=== PATIENT | male | born 1975 | race Caucasian/White ===

== ENCOUNTER 2018-05-25 19:14 | Inpatient (IN) ==
[2018-05-25] MEDS ORDERED: Sod Chloride 0.9% Inj 1,000 ML IV.SIG ONE (19:38)
[2018-05-25] MEDS ORDERED: Pantoprazole Inj 40 MG Vial IV.PUSH ONE (19:38)
[2018-05-25 19:58] LABS: Hemoglobin 9.9 gm/dL (13.0-17.0); Mean Corpuscular HGB Conc 35.5 % (32.0-36.0); Mean Corpuscular Hemoglobin 37.3 pg (27.0-34.0); Mean Corpuscular Volume 105.1 fL (80.0-100.0); Mean Platelet Volume 10.7 fL (7.0-11.0); Platelet Count 97 th/mm3 (150-450); Red Blood Count 2.67 mil/mm3 (4.50-5.90); White Blood Count 11.7 th/mm3 (4.0-11.0)
--- NOTE | 2018-05-25 20:04 | XR ---
EXAM DATE: 05/25/2018 7:53 PM EDT AGE/SEX: 43 years / Male INDICATIONS: Chest pain. CLINICAL DATA: This is the patient's initial encounter. Patient reports that signs and symptoms have been present for 1 day and indicates a pain score of 5/10. MEDICAL/SURGICAL HISTORY: None. None. COMPARISON: No prior exams available for comparison. FINDINGS: Trace bibasilar atelectasis. No pleural effusion. No pneumothorax. Heart size within normal limits. CONCLUSION: Minimal bibasilar atelectasis. Electronically signed by: Homar Correia MD 05/25/2018 8:03 PM EDT
[2018-05-25 20:10] LABS: Chloride 99 meq/L (98-107); Potassium 3.6 meq/L (3.5-5.1); Sodium 137 meq/L (136-145)
[2018-05-25 20:15] LABS: Albumin 2.1 g/dL (3.4-5.0); Anion Gap 15 meq/L (5-15); Blood Urea Nitrogen 27 mg/dL (7-18); Carbon Dioxide 22.7 meq/L (21.0-32.0); Glucose,Random 158 mg/dL (74-106)
[2018-05-25 20:16] LABS: Activated Partial Thrombo Time 32.4 sec (24.3-30.1); INR 1.6 Ratio; Prothrombin Time 16.3 sec (9.8-11.6)
[2018-05-25 20:18] LABS: Alanine Aminotransferase 62 U/L (12-78); Aspartate Aminotransferase 285 U/L (15-37); Glomerular Filtration Rate Greater Than 89 mL/min (>89)
[2018-05-25 20:19] LABS: Total Protein 8.1 g/dL (6.4-8.2)
[2018-05-25 20:21] LABS: Alkaline Phosphatase 210 U/L (45-117)
[2018-05-25 20:36] LABS: Lipase 233 U/L (73-393)
[2018-05-25 20:39] LABS: Alcohol 147 mg/dL (0-5)
[2018-05-25] MEDS ORDERED: Octreotide Inj 500 MCG/ML Vial IV.CONT SCH (21:00)
[2018-05-25 21:22] LABS: Lymphocytes 22 % (9-44); Metamyelocytes 1 % (0-1); Monocytes 9 % (0-8); Platelet Morphology Normal (Normal); RBC Morphology Normal (Normal)
--- NOTE | 2018-05-25 21:58 | ED ---
HPI General Chief complaint: GI Bleed Stated complaint: Blood in stool Time Seen by Provider: 05/25/18 19:35 Source: patient and family Mode of arrival: ambulatory Limitations: no limitations Related Data Home Medications Medication Instructions Recorded Confirmed ibuprofen 800 mg PO ONCE 05/25/18 05/25/18 Allergies Allergy/AdvReac Type Severity Reaction Status Date / Time No Known Allergies Allergy Verified 05/25/18 19:50 Review of Systems ROS: all other systems reviewed are negative (Patient presents with 2 problems # 1 chest pain that is has been intermittent for the last week with episodes of substernal pressure that lasted approximately 1 hour and occur 1-2 times per day. Additionally patient has history of black stools for 3-4 days and also had nausea and vomiting with coffee-ground emesis and is heme positive prior to arrival. Patient has not been treated for liver disease but has history of sclera icterus and distended belly 4 months. History of significant chronic alcohol ingestion. Patient has been taking increased ibuprofen for the last week and a half to deal with his chest pain.) [facility] Medical History Medical History Alcohol abuse (Acute) Surgical History Surgical History No history of previous surgery (Acute) Social History Social History Substance History: No History of Abuse Second Hand Smoke Exposure: Yes Smoking Status: Heavy tobacco smoker Tobacco Type: Cigarettes How Often Do You Have a Drink Containing Alcohol: 4 or more times a week Recent Travel in [facility] within the Last 8 Weeks: No Recent Out of Country Travel within the Last 8 Weeks: No Exam Narrative Exam Narrative: GENERAL: Alert and oriented SKIN: Focused skin assessment warm/dry. HEAD: Atraumatic. Normocephalic. Coffee-ground material on. EYES: Pupils equal and round. Significant scleral icterus. No injection or drainage. ENT: No nasal bleeding or discharge. Mucous membranes pink and moist. NECK: Trachea midline. No JVD. CARDIOVASCULAR: Regular rate and rhythm. No murmur appreciated. RESPIRATORY: No accessory muscle use. Clear to auscultation. Breath sounds equal bilaterally. GASTROINTESTINAL: Distended abdomen with dullness to percussion consistent with ascites . abdomen soft, non-tender, nondistended. Hepatic and splenic margins not palpable. Rectal: Black Hemoccult positive stool MUSCULOSKELETAL: No obvious deformities. No clubbing. No cyanosis. No edema. NEUROLOGICAL: Awake and alert. No obvious cranial nerve deficits. Motor grossly within normal limits. Normal speech. PSYCHIATRIC: Appropriate mood and affect; insight and judgment normal. Course Reevaluation(s) Reevaluation #1: Unchanged patient stable at present time Time: 22:01 Initial Documented Vital Signs Temperature 98.2 F 05/25/18 19:17 Pulse Rate 129 H 05/25/18 19:17 Respiratory Rate 20 05/25/18 19:17 Blood Pressure 131/74 05/25/18 19:17 Pulse Oximetry 96 05/25/18 19:17 Last Documented Vital Signs Temperature 98.2 F 05/25/18 19:17 Pulse Rate 122 H 05/25/18 22:15 Respiratory Rate 16 05/25/18 22:15 Blood Pressure 106/61 05/25/18 22:15 Pulse Oximetry 95 05/25/18 22:15 Medical Decision Making MDM Narrative Medical decision making narrative: Patient had black stools for about 3-4 days. The hematemesis just occurred prior to arrival. His presentation is very consistent with slow GI bleed over the last 3-4 days with no evidence of significant hemorrhage at this time. It was decided not to put a nasogastric tube to treat him rather with Protonix and octreotide. Patient has history of intermittent chest pain for the last week, however, has not had any chest pain while in the emergency department. Differential Diagnosis Differential Diagnosis: GI bleed; slow or active bleeding. Esophageal varices; peptic ulcer; Lab Data Result diagrams: 05/25/18 19:30 05/25/18 19:30 Lab Results 05/25/18 05/25/18 05/25/18 Range/Units 19:30 19:30 19:30 CBC w Diff Slide review pending WBC 11.7 H (4.0-11.0) th/mm3 RBC 2.67 L (4.50-5.90) mil/mm3 Hgb 9.9 L (13.0-17.0) gm/dL Hct 28.0 L (39.0-51.0) % MCV 105.1 H (80.0-100.0) fL MCH 37.3 H (27.0-34.0) pg MCHC 35.5 (32.0-36.0) % RDW 17.0 (11.6-17.2) % Plt Count 97 L (150-450) th/mm3 MPV 10.7 (7.0-11.0) fL WBC Differential Manual diff final Seg Neuts % (Manual) 63 (16-70) % Band Neuts % (Manual) 2 (0-6) % Lymphocytes % (Manual) 22 (9-44) % Monocytes % (Manual) 9 H (0-8) % Basophils % (Manual) 3 H (0-2) % Metamyelocytes % (Man) 1 (0-1) % Abs Neuts (Manual) 7.7 (1.8-7.7) th/mm3 Differential Comment . Platelet Estimate Low L (Normal) Platelet Morphology Normal (Normal) RBC Morphology Normal (Normal) PT 16.3 H (9.8-11.6) sec INR 1.6 Ratio APTT 32.4 H (24.3-30.1) sec Sodium (136-145) meq/L Potassium (3.5-5.1) meq/L Chloride (98-107) meq/L Carbon Dioxide (21.0-32.0) meq/L Anion Gap (5-15) meq/L BUN (7-18) mg/dL Creatinine (0.60-1.30) mg/dL Estimated GFR (>89) mL/min Random Glucose (74-106) mg/dL Calcium (8.5-10.1) mg/dL Total Bilirubin (0.2-1.0) mg/dL AST (15-37) U/L ALT (12-78) U/L Alkaline Phosphatase (45-117) U/L Troponin I (0.02-0.05) ng/mL Total Protein (6.4-8.2) g/dL Albumin (3.4-5.0) g/dL Lipase 233 (73-393) U/L Serum Alcohol 147 H (0-5) mg/dL Blood Type Blood Type Recheck Antibody Screen 05/25/18 05/25/18 05/25/18 Range/Units 19:30 19:30 19:30 CBC w Diff WBC (4.0-11.0) th/mm3 RBC (4.50-5.90) mil/mm3 Hgb (13.0-17.0) gm/dL Hct (39.0-51.0) % MCV (80.0-100.0) fL MCH (27.0-34.0) pg MCHC (32.0-36.0) % RDW (11.6-17.2) % Plt Count (150-450) th/mm3 MPV (7.0-11.0) fL WBC Differential Seg Neuts % (Manual) (16-70) % Band Neuts % (Manual) (0-6) % Lymphocytes % (Manual) (9-44) % Monocytes % (Manual) (0-8) % Basophils % (Manual) (0-2) % Metamyelocytes % (Man) (0-1) % Abs Neuts (Manual) (1.8-7.7) th/mm3 Differential Comment Platelet Estimate (Normal) Platelet Morphology (Normal) RBC Morphology (Normal) PT (9.8-11.6) sec INR Ratio APTT (24.3-30.1) sec Sodium 137 (136-145) meq/L Potassium 3.6 (3.5-5.1) meq/L Chloride 99 (98-107) meq/L Carbon Dioxide 22.7 (21.0-32.0) meq/L Anion Gap 15 (5-15) meq/L BUN 27 H (7-18) mg/dL Creatinine 0.66 (0.60-1.30) mg/dL Estimated GFR Greater than 89 (>89) mL/min Random Glucose 158 H (74-106) mg/dL Calcium 8.0 L (8.5-10.1) mg/dL Total Bilirubin 11.3 H (0.2-1.0) mg/dL AST 285 H (15-37) U/L ALT 62 (12-78) U/L Alkaline Phosphatase 210 H (45-117) U/L Troponin I Less than 0.02 L (0.02-0.05) ng/mL Total Protein 8.1 (6.4-8.2) g/dL Albumin 2.1 L (3.4-5.0) g/dL Lipase (73-393) U/L Serum Alcohol (0-5) mg/dL Blood Type A Positive Blood Type Recheck Antibody Screen Negative Imaging Data Radiologist's impression: Chest X-Ray 05/25/18 19:41 CONCLUSION: Minimal bibasilar atelectasis. Discharge Plan Discharge Disposition Patient Disposition: 30 Still Patient Physicians Team ED Provider: Artur Saenz Primary Care Provider: Primary Care Karina Lugo Other Providers: Mary Rocha Rxs /Orders / Referrals /Forms Prescriptions: No Action ibuprofen 200 mg Tablet 800 mg PO ONCE RF: 0 Discharge Interventions Interventions: Vital Signs Last Done: 05/25/18 20:10 Status ED Status: With Doctor
[2018-05-25] MEDS ORDERED: LORazepam 1 MG Tablet PO PRN (22:19)
[2018-05-25] MEDS ORDERED: Haloperidol Inj 5 MG/ML Ampul IV.PUSH PRN (22:19)
[2018-05-25] MEDS: Sod Chloride 0.9% Inj 1,000 ML IV.CONT SCH (22:54)
[2018-05-25] MEDS: Octreotide Inj 500 MCG in Sodium Chlor 0.9% Inj 500 ML IV.SIG SCH (23:01)
[2018-05-26 00:54] LABS: Hematocrit 25.2 % (39.0-51.0); Hemoglobin 8.8 gm/dL (13.0-17.0); Mean Corpuscular HGB Conc 34.8 % (32.0-36.0); Mean Corpuscular Volume 106.1 fL (80.0-100.0); Mean Platelet Volume 9.7 fL (7.0-11.0); Platelet Count 91 th/mm3 (150-450); Red Blood Count 2.37 mil/mm3 (4.50-5.90); Red Cell Distribution Width 17.1 % (11.6-17.2); White Blood Count 10.8 th/mm3 (4.0-11.0)
[2018-05-26 01:01] LABS: Chloride 102 meq/L (98-107); Potassium 3.4 meq/L (3.5-5.1); Sodium 139 meq/L (136-145)
[2018-05-26 01:04] LABS: Anion Gap 13 meq/L (5-15); Blood Urea Nitrogen 27 mg/dL (7-18); Calcium 7.8 mg/dL (8.5-10.1); Carbon Dioxide 24.5 meq/L (21.0-32.0); Glucose,Random 123 mg/dL (74-106)
[2018-05-26 01:08] LABS: Glomerular Filtration Rate Greater Than 89 mL/min (>89)
[2018-05-26 01:53] LABS: Lymphocytes 10 % (9-44); Monocytes 6 % (0-8); Target Cells 1+; Tear Drop Cells 1+
[2018-05-26 01:54] LABS: Platelet Morphology Normal (Normal)
[2018-05-26 05:31] LABS: Hematocrit 25.1 % (39.0-51.0); Hemoglobin 8.8 gm/dL (13.0-17.0)
[2018-05-26] MEDS: Sod Chloride 0.9% Inj 1,000 ML IV.CONT SCH ×4 (06:07→23:08)
[2018-05-26] MEDS ORDERED: Potassium Chlor 20 mEq Premix 20 MEQ/100 ML PIGGYBACK IV.SIG ONE (07:18)
[2018-05-26] MEDS ORDERED: Diatrizoate Meglum/Diatrizoate Sod Liq 9 ML UDC PO ONE (08:00)
--- NOTE | 2018-05-26 08:25 | P.HPIM ---
History of Present Illness Primary Care Physician: No Primary Care Physician Chief Complaint: Intestinal bleeding History of Present Illness: Is a 43-year-old gentleman with a history of alcohol dependency who presents with severe liver failure and evidence of GI bleeding patient says he has had abdominal pain and chest pressure for which she started taking ibuprofen. Patient complains of mild abdominal pain at this point. He has been picking at his bottom. He has rectal exam which showed some hemorrhoids with Hemoccult positive stool in the emergency room. Here the patient has been comfortable but picking at his bottom. Patient's been admitted to the hospital with a hemoglobin of 9.9 and a pulse rate in the 120s - Diagnosis (1) EtOH dependence (2) Liver failure (3) GI bleed (4) Metabolic encephalopathy (5) Anemia Inpatient Certification: I certify that the inpatient services were ordered in accordance with Medicare regulations governing the order. This includes certification that hospital inpatient services are reasonable and necessary and in the case of services not specified as inpatient-only under 42 CFR 419.22(n), that they are appropriately provided as inpatient services in accordance to with the 2-midnight benchmark under 43 CFR 412.3(e) [facility] - History History Provided By: Patient - Medical History Medical History: Medical History (Last Reviewed 05/26/18 @ 08:18 by Orquidea Astorga MD) Alcohol abuse - Surgical History Surgical History: Surgical History (Last Reviewed 05/26/18 @ 08:18 by Orquidea Astorga MD) No history of previous surgery - Family History Family History: Family History (Last Updated 05/26/18 @ 08:18 by Orquidea Astorga MD) Other EtOH dependence - Tobacco History Second Hand Smoke Exposure: Yes Tobacco Use In Past 30 Days: Yes Smoking Status: Smoker, status unknown Tobacco Type: Cigarettes - Alcohol History How Often Do You Have a Drink Containing Alcohol: 4 or more times a week (Fifth of vodka a day) - Substance Use History Substance History: No History of Abuse - Travel History Recent Travel in the [place] Within the Last 8 Weeks: No Recent Travel Out of the Country Within the Last 8 Weeks: No - Immunization History Tetanus Immunization: Never Vaccinated Hx Influenza Vaccine This Season: No Medications and Allergies Active Medications: Active Medications Flumazenil (Romazecon Inj) 0.2 mg IV.PUSH Q1M PRN PRN Reason: OVERSEDATION Haloperidol Lactate (Haldol Inj) 1 mg IV.PUSH Q15M PRN PRN Reason: for severe agitation Sodium Chloride (Ns Inj) 1,000 mls @ 125 mls/hr IV.CONT .Q8H ANGI Last Admin: 05/26/18 06:07 Dose: 125 mls/hr Multivitamins 10 ml/ Folic (Acid 1 mg/ Sodium Chloride) 510.2 mls @ 125 mls/hr IV.SIG DAILY ANGI Stop: 05/31/18 08:59 Octreotide Acetate 500 mcg/ (Sodium Chloride) 501 mls @ 50 mls/hr IV.SIG Q10H ANGI Last Admin: 05/25/18 23:01 Dose: 50 mls/hr Potassium Chloride (Kcl 20 Meq Premix Inj) 20 meq in 100 mls @ 50 mls/hr IV.SIG ONCE ONE Stop: 05/26/18 09:17 Lorazepam (Ativan) 2 mg PO Q2H PRN PRN Reason: for CIWA 11-14 Lorazepam (Ativan Inj) 2 mg IV.PUSH Q2H PRN PRN Reason: for CIWA 11-14 Lorazepam (Ativan Inj) 2 mg IV.PUSH Q1H PRN PRN Reason: for CIWA 15-20 Lorazepam (Ativan Inj) 2 mg IV.PUSH Q15M PRN PRN Reason: for CIWA > 20 Lorazepam (Ativan Inj) 1 mg IV.PUSH Q4H PRN PRN Reason: for CIWA 8-10 Lorazepam (Ativan) 1 mg PO Q4H PRN PRN Reason: for CIWA 8-10 Last Admin: 05/26/18 04:08 Dose: 1 mg Ondansetron HCl (Zofran Inj) 4 mg IV.PUSH Q6H PRN PRN Reason: NAUSEA Pantoprazole Sodium (Protonix Inj) 40 mg IV.PUSH DAILY ANGI Sodium Chloride (Ns Flush) 2 ml IV.FLUSH PRN PRN PRN Reason: FLUSH AFTER USING IV ACCESS Last Admin: 05/25/18 20:07 Dose: 2 ml Sodium Chloride (Ns Flush) 2 ml IV.FLUSH BID ANGI Sodium Chloride (Ns Flush) 2 ml IV.FLUSH PRN PRN PRN Reason: FLUSH AFTER USING IV ACCESS Thiamine HCl (Vitamin B1) 100 mg PO DAILY ANGI Allergies Allergy/AdvReac Type Severity Reaction Status Date / Time No Known Allergies Allergy Verified 05/25/18 19:50 Home Medications Medication Instructions Recorded Confirmed Type ibuprofen 800 mg PO ONCE 05/25/18 05/25/18 History Exam Vital signs: Vital Signs 05/25/18 19:17 05/25/18 19:40 05/25/18 20:10 Temperature 98.2 F Pulse Rate 129 H 113 H 118 H Respiratory Rate 20 16 18 Blood Pressure 131/74 125/71 114/65 Pulse Oximetry 96 99 95 05/25/18 21:15 05/25/18 22:15 05/26/18 00:40 Temperature Pulse Rate 114 H 122 H 104 H Respiratory Rate 18 16 16 Blood Pressure 129/80 106/61 134/74 Pulse Oximetry 95 95 96 05/26/18 01:10 05/26/18 01:25 05/26/18 01:28 Temperature Pulse Rate 108 H Respiratory Rate Blood Pressure 135/76 Pulse Oximetry 96 96 05/26/18 01:34 05/26/18 01:55 05/26/18 02:00 Temperature Pulse Rate 114 H 108 H Respiratory Rate 20 Blood Pressure Pulse Oximetry 95 94 L 05/26/18 03:00 05/26/18 03:18 05/26/18 04:00 Temperature 98.5 F Pulse Rate 112 H 112 H 122 H Respiratory Rate 30 H 25 H 55 H Blood Pressure 121/77 121/79 Pulse Oximetry 94 L 94 L 94 L Intake & Output 05/25/18 05/26/18 05/26/18 18:59 06:59 18:59 Intake Total 2059 / 2060 Output Total 800 / 800 Balance 1260 / 1260 Weight 98.9 kg Intake: IV 1999 / 1999 NS Inj 1,000 ML @ 125 mls/hr IV 1000 / 1000 .CONT .Q8H ANGI Rx#:[id number] NS Inj 1,000 ML @ Wide Open IV. 1000 / 1000 SIG BOLUS ONE Rx#:[id number] Oral 60 / 60 Output: Urine 550 / 550 Emesis 250 / 250 Other: Date of Last Bowel Movement 05/26/18 # Bowel Movements 1 Weight On Admission 98.9 kg Narrative: GENERAL: Frail gentleman who is jaundiced and disheveled and appears older than stated age SKIN: Warm and dry. Diffuse telangiectasias HEAD: Normocephalic. EYES: Scleral icterus is present NECK: Supple, trachea midline. No JVD or lymphadenopathy. CARDIOVASCULAR: Regular rate and rhythm without murmurs, gallops, or rubs. RESPIRATORY: Breath sounds equal bilaterally. No accessory muscle use. GASTROINTESTINAL: Abdomen soft, nontender but distended MUSCULOSKELETAL: No cyanosis, and there is +3 lower extremity edema BACK: Nontender without obvious deformity. No CVA tenderness. NEUROLOGICAL: Awake and alert. Cranial nerves II through XII intact. Motor and sensory grossly within normal limits. Five out of 5 muscle strength in all muscle groups. Normal speech. Results - Labs CBC & Chem 7: 05/26/18 05:20 05/26/18 00:35 Labs: Short CBC 05/25/18 05/26/18 05/26/18 Range/Units 19:30 00:35 05:20 WBC 11.7 H 10.8 (4.0-11.0) th/mm3 Hgb 9.9 L 8.8 L 8.8 L (13.0-17.0) gm/dL Hct 28.0 L 25.2 L 25.1 L (39.0-51.0) % Plt Count 97 L 91 L (150-450) th/mm3 BMP 05/25/18 05/26/18 19:30 00:35 Sodium 137 139 Potassium 3.6 3.4 L Chloride 99 102 Carbon Dioxide 22.7 24.5 BUN 27 H 27 H Creatinine 0.66 0.63 Calcium 8.0 L 7.8 L Cardiac Enzymes 05/25/18 Range/Units 19:30 Troponin I Less than 0.02 L (0.02-0.05) ng/mL Liver Function 05/25/18 Range/Units 19:30 Total Bilirubin 11.3 H (0.2-1.0) mg/dL AST 285 H (15-37) U/L ALT 62 (12-78) U/L Alkaline Phosphatase 210 H (45-117) U/L Albumin 2.1 L (3.4-5.0) g/dL - Imaging Impressions Chest X-Ray 05/25/18 19:41 CONCLUSION: Minimal bibasilar atelectasis. Caprini VTE Risk Assessment Caprini VTE Risk Assessment: Moderate/High Risk (score >= 2) VTE Pharmacological Exception Reason: End Stage Liver Disease Caprini Risk Assessment Model: Point Value = 1 Point Value = 2 Point Value = 3 Point Value = 5 Age 41-60 Minor surgery BMI > 25 kg/m2 Swollen legs Varicose veins or History of unexplained or recurrent spontaneous Oral contraceptives or hormone replacement Sepsis (< 1 month) Serious lung disease, including pneumonia (< 1 month) Abnormal pulmonary function Acute myocardial infarction Congestive heart failure (< 1 month) History of inflammatory bowel disease Medical patient at bed rest Age 61-74 Arthroscopic surgery Major open surgery (> 45 min) Laparoscopic surgery (> 45 min) Malignancy Confined to bed (> 72 hours) Immobilizing plaster cast Central venous access Age >= 75 History of VTE Family history of VTE Factor V Leiden Prothrombin [id number] Lupus anticoagulant Anticardiolipin antibodies Elevated serum homocysteine Heparin-induced thrombocytopenia Other congenital or acquired thrombophilia Stroke (< 1 month) Elective arthroplasty Hip, pelvis, or leg fracture Acute spinal cord injury (< 1 month) Prophylaxis Regimen: Total Risk Factor Score Risk Level Prophylaxis Regimen 0-1 Low Early ambulation 2 Moderate Order ONE of the following: *Sequential Compression Device (SCD) *Heparin 5000 units SQ BID 3-4 Higher Order ONE of the following medications: *Heparin 5000 units SQ TID *Enoxaparin/Lovenox 40 mg SQ daily (WT < 150 kg, CrCl > 30 mL/min) *Enoxaparin/Lovenox 30 mg SQ daily (WT < 150 kg, CrCl > 10-29 mL/min) *Enoxaparin/Lovenox 30 mg SQ BID (WT < 150 kg, CrCl > 30 mL/min) AND/OR *Sequential Compression Device (SCD) 5 or more Highest Order ONE of the following medications: *Heparin 5000 units SQ TID (Preferred with Epidurals) *Enoxaparin/Lovenox 40 mg SQ daily (WT < 150 kg, CrCl > 30 mL/min) *Enoxaparin/Lovenox 30 mg SQ daily (WT < 150 kg, CrCl > 10-29 mL/min) *Enoxaparin/Lovenox 30 mg SQ BID (WT < 150 kg, CrCl > 30 mL/min) AND *Sequential Compression Device (SCD) Assessment and Plan - Assessment (1) EtOH dependence Code(s): F10.20 - Alcohol dependence, uncomplicated Status: Acute Plan: [facility] protocol Patient education (2) Liver failure Code(s): K72.90 - Hepatic failure, unspecified without coma Status: Acute Plan: Rule out alternative causes of an alcohol which is the most likely etiology Follow-up iron levels and viral hepatitis studies CT abdomen pelvis pending Add Lasix and diuresed patient Patient may benefit from Aldactone and her lactulose depending on the rest of his studies We will add a beta-maria l (3) GI bleed Code(s): K92.2 - Gastrointestinal hemorrhage, unspecified Status: Acute Plan: Patient on Protonix and octreotide Follow-up hemoglobin Follow-up CT abdomen pelvis GI consult for possible endoscopy Avoid NSAIDs (4) Metabolic encephalopathy Code(s): G93.41 - Metabolic encephalopathy Status: Acute Plan: Follow-up ammonia level Likely due to liver disease Continue medical management with CIWA protocol (5) Anemia Code(s): D64.9 - Anemia, unspecified Status: Acute Plan: Workup in progress, transfuse as needed Likely due to acute GI blood losses Type and screen completed H&P: Quality - VTE Deep Vein Thrombosis/Pulmonary Embolism Present on Admission: No
--- NOTE | 2018-05-26 08:28 | ECG ---
Date Performed: 05/25/2018 Time Performed: 19:37:16 PTAGE: 43 years EKG: SINUS TACHYCARDIA NONSPECIFIC ST & T-WAVE ABNORMALITY ABNORMAL RHYTHM ECG NO PREVIOUS TRACING DOCTOR: Kiko Bloom Interpretating Date/Time 05/26/2018 08:25:57
[2018-05-26 09:14] LABS: Chloride 104 meq/L (98-107); Potassium 3.3 meq/L (3.5-5.1); Sodium 140 meq/L (136-145)
[2018-05-26 09:17] LABS: Calcium 7.5 mg/dL (8.5-10.1)
[2018-05-26 09:18] LABS: Anion Gap 11 meq/L (5-15); Blood Urea Nitrogen 19 mg/dL (7-18); Glucose,Random 127 mg/dL (74-106)
[2018-05-26 09:21] LABS: Alanine Aminotransferase 52 U/L (12-78); Aspartate Aminotransferase 238 U/L (15-37); Glomerular Filtration Rate Greater Than 89 mL/min (>89)
[2018-05-26 09:22] LABS: Total Protein 7.3 g/dL (6.4-8.2)
[2018-05-26 09:24] LABS: Alkaline Phosphatase 172 U/L (45-117)
[2018-05-26] MEDS: Pantoprazole Inj 40 MG Vial IV.PUSH SCH (09:37)
[2018-05-26] MEDS: Octreotide Inj 500 MCG in Sodium Chlor 0.9% Inj 500 ML IV.SIG SCH ×2 (09:47→20:26)
[2018-05-26] MEDS: Nadolol 20 MG Tablet PO SCH (10:11)
--- NOTE | 2018-05-26 11:36 | CT ---
EXAM DATE: 05/26/2018 11:29 AM EDT AGE/SEX: 43 years / Male INDICATIONS: Elevated liver enzymes and black stool with nausea and vomiting. CLINICAL DATA: This is the patient's initial encounter. Patient reports that signs and symptoms have been present for 3 days and indicates a pain score of 0/10. MEDICAL/SURGICAL HISTORY: None. None. RADIATION DOSE: 22.43 CTDI (mGy) COMPARISON: No prior exams available for comparison. TECHNIQUE: Multiple contiguous axial images were obtained through the abdomen. Images were obtained using multiple row detector helical technique. Using automated exposure control and adjustment of the mA and/or kV according to patient size, radiation dose was kept as low as reasonably achievable to o btain optimal diagnostic quality images. DICOM format image data is available electronically for rev iew and comparison. FINDINGS: Lower Lungs: Right basilar density likely atelectasis. Small right pleural effusion. Liver: The liver is extremely heterogeneous without space-occupying lesion. There is no dilation of t he biliary tree. Moderate amount of abdominal ascites. There is a left upper quadrant. Spleen: Homogeneous density with enlargement. Pancreas: Unremarkable without mass or calcification. Kidneys: Normal in size and shape. No evidence of mass or hydronephrosis. Adrenal Glands: Unremarkable. Aorta: The aorta and proximal iliac vessels are grossly unremarkable without aneurysmal dilation. Bowel/Mesentery: Scattered diverticulosis Abdominal Wall: Intact. Retroperitoneum: No evidence of adenopathy in the retrocrural, para-aortic, or deep pelvic regions. Bladder: Contours are smooth. Reproductive Organs: No abnormal masses or calcifications seen. Inguinal: The inguinal region is unremarkable without evidence of adenopathy. Bony Structures: Unremarkable. CONCLUSION: 1. Heterogeneous liver likely hepatitis/cirrhosis. 2. Splenomegaly. 3. Moderate abdominal ascites and there is disease left upper quadrant. 4. Small right pleural effusion and right basilar density. Electronically signed by: Harris Ewing MD 05/26/2018 11:35 AM EDT
--- NOTE | 2018-05-26 12:00 | MB ---
cc: Mary Rocha MD DATE: 05/26/2018 REFERRING PHYSICIAN: Orquidea Astorga MD REASON FOR CONSULTATION: GI bleed. HISTORY OF PRESENT ILLNESS: Mr. Mccullough is a 43-year-old gentleman, heavy alcohol user, came to the emergency room with atypical chest pain and some hematemesis. He is a somewhat poor historian. He is unable to tell me how much blood exactly he vomited. He showed me his hand and he said it was a handful of dark blood. He also had some dark stool per rectum. Never had an endoscopy or a colonoscopy. There is no weight loss. There is some increasing abdominal girth. He does not recall any previous episodes of acute hepatitis or hospitalizations for the above reasons. PAST MEDICAL HISTORY: Alcohol dependence, alcoholic hepatitis, GI bleed, encephalopathy, anemia. PAST SURGICAL HISTORY: None. SOCIAL HISTORY: Does drink alcohol daily. FAMILY HISTORY: No family history of colon cancer or any other GI pathology. CURRENT MEDICATIONS: 1. Flumazenil 2. Haloperidol. 3. Multivitamins. 4. Octreotide. 5. Potassium chloride. 6. Ativan p.r.n. 7. Zofran p.r.n. 8. Protonix IV. 9. Thiamine. ALLERGIES: NO KNOWN ALLERGIES. MEDICATIONS AT HOME: None. REVIEW OF SYSTEMS: GENERAL: He denies any fever, chills, weight loss or weight gain. ENT: No alteration in baseline hearing or visual activity. PULMONARY: Denies any chest pain, shortness of breath. GASTROINTESTINAL: As above. GENITOURINARY: Denies dysuria or hematuria. HEMATOLOGICAL: Denies any history of anemia or bleeding disorder. SKIN: No alteration of baseline skin lesion. NEUROLOGIC: No history of TIA or CVA kind of symptoms. PHYSICAL EXAMINATION: GENERAL: He is sitting in bed, no acute distress. He looks older than his age. VITAL SIGNS: Temperature is 98.5, heart rate is 122, respirations 25, saturation 94, blood pressure 121/79. HEENT: PERRLA, jaundiced. NECK: Without JVD. No lymphadenopathy. CHEST: Clear to auscultation and palpation. CARDIOVASCULAR: S1, S2. No murmur. ABDOMEN: Soft, nontender, or distended, mild ascites. CENTRAL NERVOUS SYSTEM: Awake, alert, oriented x3. No flapping tremor. EXTREMITIES: No pedal edema. RECTAL: External hemorrhoids on rectal examination. LABORATORY DATA: His hemoglobin on admission of 9.91, white count 11.7, platelets 97. Repeat hemoglobin 8.8. PT/INR 16.3 and 1.6. Chemistry: Total bilirubin is 11.3. Now was done, AST 238, alkaline phosphatase 172, albumin 2, ammonia 56. His PT/INR as above. His alcohol serum 147. Hepatitis profile pending. A CT abdomen and pelvis was ordered and pending. ASSESSMENT: 1. Mr. Mccullough is a 43-year-old gentleman admitted with a gastrointestinal bleed, most likely secondary to portal gastropathy, somewhat hemodynamically stable at this time. 2. Atypical chest pain, possible gastritis, esophagitis. The patient has a history of recent NSAID use. 3. Elevated LFTs most likely secondary to alcoholic hepatitis, possible ascites, alcoholic dependency. RECOMMENDATIONS: Clear liquid diet. Upper endoscopy in the morning unless indicated otherwise. Hepatitis profile and liver workup. Rocephin IV, vitamin K IV. Monitor H and H closely. Monitor PT, INR. If ascites, paracentesis. Supportive care, transfuse p.r.n. Further recommendation will depend on the patient's clinical status and the above results. I would like to thank Dr. Astorga for referring him to our office for consultation. Call GI if active bleed or any change in his clinical status. Mary Rocha MD BSB/ch/kd , 10:43 AM , 10:54 AM
[2018-05-26] MEDS: Multivitamin Inj 10 ML, Folic Acid Inj 1 MG in Sodium Chlor 0.9% Inj 500 ML IV.SIG SCH (12:14)
[2018-05-26 12:55] LABS: % Iron Saturation 94.7 % (20-50); Iron 122 mcg/dL (65-175); Total Iron Binding Capacity 129 mcg/dL (250-450)
[2018-05-26 13:41] LABS: Hepatitits B Surface Antigen Nonreactive (Nonreactive)
[2018-05-26 13:48] LABS: Hepatitis A IgM Antibody Nonreactive (Nonreactive)
[2018-05-26 14:10] LABS: Hematocrit 24.7 % (39.0-51.0); Hemoglobin 8.3 gm/dL (13.0-17.0)
[2018-05-26 19:22] LABS: Hematocrit 24.6 % (39.0-51.0); Hemoglobin 8.4 gm/dL (13.0-17.0)
[2018-05-27 05:07] LABS: Hematocrit 24.3 % (39.0-51.0); Hemoglobin 8.3 gm/dL (13.0-17.0); Mean Corpuscular HGB Conc 34.3 % (32.0-36.0); Mean Corpuscular Hemoglobin 37.2 pg (27.0-34.0); Mean Corpuscular Volume 108.6 fL (80.0-100.0); Mean Platelet Volume 9.9 fL (7.0-11.0); Platelet Count 82 th/mm3 (150-450); Red Blood Count 2.24 mil/mm3 (4.50-5.90); Red Cell Distribution Width 16.9 % (11.6-17.2); White Blood Count 7.5 th/mm3 (4.0-11.0)
[2018-05-27 05:17] LABS: Chloride 105 meq/L (98-107); Sodium 140 meq/L (136-145)
[2018-05-27 05:19] LABS: INR 1.6 Ratio; Prothrombin Time 16.1 sec (9.8-11.6)
[2018-05-27] MEDS: Octreotide Inj 500 MCG in Sodium Chlor 0.9% Inj 500 ML IV.SIG SCH (05:19)
[2018-05-27 05:24] LABS: Alanine Aminotransferase 42 U/L (12-78); Albumin 1.9 g/dL (3.4-5.0); Anion Gap 8 meq/L (5-15); Aspartate Aminotransferase 197 U/L (15-37); Blood Urea Nitrogen 10 mg/dL (7-18); Carbon Dioxide 26.7 meq/L (21.0-32.0); Glomerular Filtration Rate Greater Than 89 mL/min (>89); Glucose,Random 98 mg/dL (74-106)
[2018-05-27 05:31] LABS: Alkaline Phosphatase 149 U/L (45-117); Total Protein 6.9 g/dL (6.4-8.2)
[2018-05-27] MEDS: Sod Chloride 0.9% Inj 1,000 ML IV.CONT SCH (06:23)
--- NOTE | 2018-05-27 07:27 | GIPROC ---
[facility] [address] [place] [address], [id number] EGD PROCEDURE REPORT EXAM DATE: 05/27/2018 PATIENT NAME: Naman Mccullough MR #: [id number] BIRTHDATE: 1975 ATTENDING: Mary Rocha MD ORDER #: [id number] PASSENGER SCREENER: Gogo Briseno and Paty Acosta STATUS: inpatient INDICATIONS: The patient is a 43 yr old male here for an EGD due to gi bleeding cirrhosis PROCEDURE PERFORMED: EGD w/ band ligation of varices MEDICATIONS: None and Per Anesthesia. TOPICAL ANESTHETIC: none CONSENT: The patient understands the risks and benefits of the procedure and understands that these risks include, but are not limited to: sedation, allergic reaction, infection, perforation and/or bleeding. Alternative means of evaluation and treatment include, among others: physical exam, x-rays, and/or surgical intervention. The patient elects to proceed with this endoscopic procedure. medical equipment was checked for proper function. Hand hygiene and appropriate measures for infection prevention was taken. After the risks, benefits and alternatives of the procedure were thoroughly explained, Informed consent was verified, confirmed and timeout was successfully executed by the treatment team. The patient was anesthetized with topical anesthesia and the Pentax EG-[id number] endoscope was introduced through the mouth and advanced to the second portion of the duodenum. Retroflexed views revealed a hiatal hernia The gastroscope was then slowly withdrawn and removed. Portal gastropathy esophageal varices grade 2-s/p banding times duodenitis. ADVERSE EVENTS: There were no complications. IMPRESSIONS: 1. Portal gastropathy esophageal varices grade 2-s/p banding times duodenitis 2. Retroflexed views revealed a hiatal hernia RECOMMENDATIONS: 1. Anti-reflux regimen 2. Continue PPI 3. Full liquid diet PATIENT CONDITION: stable DISPOSITION: Inpatient REPEAT EXAM: Return 8 weeks EGD Mary Rocha MD eSigned: Mary Rocha MD 05/27/2018 7:27 AM cc:
[2018-05-27] MEDS ORDERED: Calcium Gluconate Inj 2 GM in Dextrose 5% in Water Inj 100 ML IV.SIG ONE ×2 (09:00)
[2018-05-27] MEDS: Potassium Chlor 20 mEq Premix 20 MEQ/100 ML PIGGYBACK IV.SIG SCH ×2 (09:24→11:59)
[2018-05-27] MEDS: Nadolol 20 MG Tablet PO SCH (09:32)
[2018-05-27] MEDS: Pantoprazole Inj 40 MG Vial IV.PUSH SCH (09:33)
[2018-05-27] MEDS ORDERED: Sodium Phosphate Inj 30 MMOL in Sodium Chlor 0.9% Inj 250 ML IV.SIG PRN (09:38)
[2018-05-27] MEDS ORDERED: Magnesium Oxide 400 MG Tablet PO PRN (09:38)
[2018-05-27] MEDS ORDERED: Potassium Phosphate Inj 30 MMOL in Sodium Chlor 0.9% Inj 250 ML IV.SIG PRN (09:38)
[2018-05-27] MEDS ORDERED: Magnesium Sulfate Inj 2 GM in Sodium Chlor 0.9% Inj 96 ML IV.SIG PRN (09:38)
[2018-05-27] MEDS ORDERED: Potassium Phosphate 500 MG Soluble Tablet PO PRN ×2 (09:38)
[2018-05-27] MEDS ORDERED: Potassium Chlor 40 mEq Premix 40 MEQ/100 ML PIGGYBACK IV.SIG PRN ×2 (09:38)
[2018-05-27] MEDS ORDERED: Potassium Chloride 25 MEQ Effervescent Tablet PO PRN (09:38)
--- NOTE | 2018-05-27 09:42 | P.PNIM ---
Subjective Interval history: Patient seen and evaluated in follow-up for liver failure secondary to alcohol dependency and for GI bleed. Patient has varices which were banded as well as duodenitis on EGD. Expected for paracentesis this afternoon Physical Exam Vital signs: Vital Signs 05/26/18 12:00 05/26/18 16:00 05/26/18 20:00 Temperature 99.4 F 99.8 F H 100.3 F H Pulse Rate 86 85 Respiratory Rate 18 28 H Blood Pressure 104/70 108/67 Pulse Oximetry 97 92 L 05/26/18 20:15 05/27/18 00:00 05/27/18 04:00 Temperature 99.4 F 98.7 F Pulse Rate 83 80 Respiratory Rate 30 H 24 Blood Pressure 110/71 109/67 Pulse Oximetry 92 L 95 92 L 05/27/18 07:00 05/27/18 07:56 05/27/18 08:00 Temperature 98.7 F 98.8 F Pulse Rate 80 88 85 Respiratory Rate 24 16 16 Blood Pressure 109/67 104/63 109/65 Pulse Oximetry 92 L 93 L 94 L 05/27/18 08:06 Temperature Pulse Rate 89 Respiratory Rate 16 Blood Pressure 112/67 Pulse Oximetry 94 L Intake & Output 05/26/18 05/27/18 05/27/18 18:59 06:59 18:59 Intake Total 1741 / 1741 3972.2 / 3972.2 500 / 500 Output Total 50 / 50 450 / 450 Balance 1691 / 1691 3522.2 / 3522.2 500 / 500 Weight 101.1 kg Intake: IV 1501 / 1501 3612.2 / 3612.2 500 / 500 NS Inj 1,000 ML @ 125 mls/hr IV 1000 / 1000 2000 / 2000 500 / 500 .CONT .Q8H ANGI Rx#:[id number] MVI-12 Inj 10 ML Folvite Inj 1 510.2 / 510.2 MG In NS Inj 500 ML @ 125 mls/ hr IV.SIG DAILY ANGI Rx#: [id number] SandoSTATIN Inj 500 MCG In NS 501 / 501 1002 / 1002 Inj 500 ML @ 50 mls/hr IV.SIG Q10H ANGI Rx#:[id number] KCl 20 mEq Premix Inj 20 meq In 0 / 0 100 ml @ 50 mls/hr IV.SIG ONCE ONE Rx#:[id number] Rocephin Inj 2,000 MG In NS Inj 100 / 100 100 ML @ 200 mls/hr IV.SIG Q24H ANGI Rx#:[id number] Oral 240 / 240 360 / 360 Output: Urine 200 / 200 Stool 250 / 250 Emesis 50 / 50 Other: # Incontinent Voids 1 Date of Last Bowel Movement 05/26/18 05/27/18 # Bowel Movements 3 # Incontinent Bowel Movements 2 Results - Labs CBC & Chem 7: 05/27/18 04:55 05/27/18 04:55 Laboratory Results - last 24 hr 05/26/18 05/26/18 05/26/18 08:35 08:35 09:55 WBC RBC Hgb Hct MCV MCH MCHC RDW Plt Count MPV PT INR Sodium Potassium Chloride Carbon Dioxide Anion Gap BUN Creatinine Estimated GFR Random Glucose Calcium Prot Corrected Calcium Iron 122 TIBC 129 L % Saturation 94.7 H Total Bilirubin AST ALT Alkaline Phosphatase Ammonia 56 H Total Protein Albumin Vitamin B12 Greater than 2000 H Hepatitis A IgM Ab Nonreactive Hep Bs Antigen Nonreactive Hep B Core IgM Ab Nonreactive Hep C IgG Ab Reactive H 05/26/18 05/26/18 05/27/18 13:47 19:16 04:55 WBC RBC Hgb 8.3 L 8.4 L Hct 24.7 L 24.6 L MCV MCH MCHC RDW Plt Count MPV PT INR Sodium 140 Potassium 3.0 L Chloride 105 Carbon Dioxide 26.7 Anion Gap 8 BUN 10 Creatinine 0.45 L Estimated GFR Greater than 89 Random Glucose 98 Calcium 7.0 L* Prot Corrected Calcium 7.1 L* Iron TIBC % Saturation Total Bilirubin 8.8 H AST 197 H ALT 42 Alkaline Phosphatase 149 H Ammonia Total Protein 6.9 Albumin 1.9 L Vitamin B12 Hepatitis A IgM Ab Hep Bs Antigen Hep B Core IgM Ab Hep C IgG Ab 05/27/18 05/27/18 04:55 04:55 WBC 7.5 RBC 2.24 L Hgb 8.3 L Hct 24.3 L MCV 108.6 H MCH 37.2 H MCHC 34.3 RDW 16.9 Plt Count 82 L MPV 9.9 PT 16.1 H INR 1.6 Sodium Potassium Chloride Carbon Dioxide Anion Gap BUN Creatinine Estimated GFR Random Glucose Calcium Prot Corrected Calcium Iron TIBC % Saturation Total Bilirubin AST ALT Alkaline Phosphatase Ammonia Total Protein Albumin Vitamin B12 Hepatitis A IgM Ab Hep Bs Antigen Hep B Core IgM Ab Hep C IgG Ab - Imaging Impressions Abdomen/Pelvis CT 05/26/18 07:14 CONCLUSION: 1. Heterogeneous liver likely hepatitis/cirrhosis. 2. Splenomegaly. 3. Moderate abdominal ascites and there is disease left upper quadrant. 4. Small right pleural effusion and right basilar density. Assessment and Plan - Assessment (1) EtOH dependence Code(s): F10.20 - Alcohol dependence, uncomplicated Status: Acute Plan: [facility] protocol Patient education (2) Liver failure Code(s): K72.90 - Hepatic failure, unspecified without coma Status: Acute Plan: Rule out alternative causes of an alcohol which is the most likely etiology Follow-up iron levels and viral hepatitis studies CT abdomen pelvis does show significant ascites Lasix and diurese patient Patient may benefit from Aldactone and lactulose We will add a beta-maria l (3) GI bleed Code(s): K92.2 - Gastrointestinal hemorrhage, unspecified Status: Acute Plan: Patient on Protonix Follow-up hemoglobin remained stable GI consult for possible endoscopy Avoid NSAIDs (4) Metabolic encephalopathy Code(s): G93.41 - Metabolic encephalopathy Status: Acute Plan: Follow-up ammonia level Likely due to liver disease Continue medical management with [facility] protocol (5) Anemia Code(s): D64.9 - Anemia, unspecified Status: Acute Plan: Workup consistent with GI blood losses Type and screen completed (6) Hepatitis C antibody positive in blood Code(s): R76.8 - Other specified abnormal immunological findings in serum Status: Acute Plan: Follow-up RNA PCR - Plan DC home 2-3 days pending paracentesis
[2018-05-27] MEDS: Potassium Bicarbonate 25 MEQ Effervescent Tablet PO SCH (10:23)
[2018-05-27] MEDS: Multivitamin Inj 10 ML, Folic Acid Inj 1 MG in Sodium Chlor 0.9% Inj 500 ML IV.SIG SCH (10:25)
--- NOTE | 2018-05-27 16:47 | US ---
EXAM DATE: 05/27/2018 2:41 PM EDT AGE/SEX: 43 years / Male INDICATIONS: Ascites. CLINICAL DATA: This is the patient's initial encounter. Patient reports that signs and symptoms have been present for 1 month and indicates a pain score of 0/10. MEDICAL/SURGICAL HISTORY: . Alcohol abuse. None. COMPARISON: No prior exams available for comparison. FLUID: Total volume of 2400 cc of clear, green fluid was removed. Fluid was sent to lab for ordered studies. . . TECHNIQUE: Ultrasound guidance for abdominal paracentesis. Paracentesis. The risks, benefits, and alternatives to ultrasound guided paracentesis were explained to the patient in detail including the risk of bleeding and infection. Written and verbal informed consent was obt ained. With the patient on the ultrasound table, ultrasound imaging was used to select the most appropriate approach for paracentesis. Overlying skin was prepped and draped in the usual sterile fashion and wi th a local anesthetic, a dermatotomy was made with an 11 blade scalpel. A 6 Azeri Saf-T -centesis c atheter was introduced into the peritoneal cavity and fluid was collected. Post procedure scanning reveals no hematoma or other complication. The patient tolerated the procedu re well and left the ultrasound suite in stable condition. FINDINGS: Clear straw-colored ascitic fluid obtained. Sample to the lab as requested. CONCLUSION: 1. Uncomplicated ultrasound-guided paracentesis. Electronically signed by: Xavi Valenzuela MD 05/27/2018 4:46 PM EDT
[2018-05-27 18:16] LABS: Total Protein,Peritoneal Fluid 1.9 gm/dL
[2018-05-28] MEDS ORDERED: Albumin Human 25% Inj 100 ML IV.SIG ONE (04:22)
[2018-05-28 04:59] LABS: Chloride 104 meq/L (98-107); Sodium 136 meq/L (136-145)
[2018-05-28 05:16] LABS: Alanine Aminotransferase 44 U/L (12-78); Albumin 1.7 g/dL (3.4-5.0); Alkaline Phosphatase 144 U/L (45-117); Anion Gap 6 meq/L (5-15); Aspartate Aminotransferase 182 U/L (15-37); Blood Urea Nitrogen 5 mg/dL (7-18); Carbon Dioxide 25.6 meq/L (21.0-32.0); Glomerular Filtration Rate Greater Than 89 mL/min (>89); Glucose,Random 92 mg/dL (74-106); Total Protein 6.5 g/dL (6.4-8.2)
[2018-05-28] MEDS: Potassium Chlor 20 mEq Premix 20 MEQ/100 ML PIGGYBACK IV.SIG PRN ×4 (05:45→12:28)
[2018-05-28] MEDS: Magnesium Sulfate Inj 4 GM in Sodium Chlor 0.9% Inj 92 ML IV.SIG PRN ×2 (07:00→08:32)
[2018-05-28] MEDS: Mag Sulf 1 gm/100 ml Premix 100 ML IV.SIG SCH ×2 (07:09→10:56)
[2018-05-28] MEDS: Pantoprazole Inj 40 MG Vial IV.PUSH SCH (08:56)
[2018-05-28] MEDS: Nadolol 20 MG Tablet PO SCH (08:58)
[2018-05-28] MEDS: Potassium Bicarbonate 25 MEQ Effervescent Tablet PO SCH (08:59)
[2018-05-28] MEDS ORDERED: Mag Sulf 1 gm/100 ml Premix 100 ML IV.SIG ONE (09:00)
[2018-05-28] MEDS ORDERED: Potassium Chloride 25 MEQ Effervescent Tablet PO ONE (09:00)
[2018-05-28] MEDS ORDERED: Calcium Gluconate Inj 2 GM in Dextrose 5% in Water Inj 100 ML IV.SIG ONE ×2 (09:00)
[2018-05-28] MEDS: Multivitamin Inj 10 ML, Folic Acid Inj 1 MG in Sodium Chlor 0.9% Inj 500 ML IV.SIG SCH (10:56)
--- NOTE | 2018-05-28 13:28 | P.PN ---
Subjective Interval history: Patient notes that his jaundice is reduced in his lower extremities. He feels mentally clear. He complains of diarrhea induced by the lactulose. Overall he states he is feeling better, but still weak, not yet at his baseline.. Physical Exam Vital signs: Vital Signs 05/27/18 13:28 05/27/18 13:43 05/27/18 15:09 Temperature Pulse Rate 82 80 Respiratory Rate 33 H 27 H Blood Pressure 98/53 L 101/68 Pulse Oximetry 05/27/18 15:10 05/27/18 16:00 05/27/18 16:41 Temperature 98.0 F Pulse Rate 78 74 76 Respiratory Rate 23 26 H 28 H Blood Pressure 104/69 100/64 Pulse Oximetry 05/27/18 16:59 05/27/18 17:00 05/27/18 17:17 Temperature Pulse Rate 80 82 78 Respiratory Rate 23 21 17 Blood Pressure 104/69 100/62 Pulse Oximetry 05/27/18 18:00 05/27/18 18:17 05/27/18 18:20 Temperature Pulse Rate 78 78 78 Respiratory Rate 18 25 H 24 Blood Pressure 90/56 L 89/54 L Pulse Oximetry 05/27/18 18:22 05/27/18 19:00 05/27/18 19:17 Temperature Pulse Rate 78 80 78 Respiratory Rate 28 H 28 H 25 H Blood Pressure 94/59 L 92/59 L Pulse Oximetry 96 95 05/27/18 20:00 05/27/18 20:05 05/27/18 20:17 Temperature Pulse Rate 80 76 Respiratory Rate 26 H 25 H Blood Pressure 87/56 L Pulse Oximetry 94 L 93 L 93 L 05/27/18 20:21 05/27/18 20:43 05/27/18 21:00 Temperature Pulse Rate 76 80 82 Respiratory Rate 19 26 H 28 H Blood Pressure 84/49 L 101/61 Pulse Oximetry 92 L 05/27/18 21:17 05/28/18 00:00 05/28/18 00:17 Temperature 99.5 F Pulse Rate 84 82 84 Respiratory Rate 25 H 22 26 H Blood Pressure 108/66 101/71 103/64 Pulse Oximetry 96 96 05/28/18 01:17 05/28/18 02:17 05/28/18 02:50 Temperature Pulse Rate 80 76 80 Respiratory Rate 28 H 22 28 H Blood Pressure 87/55 L 82/52 L Pulse Oximetry 96 96 05/28/18 02:52 05/28/18 03:17 05/28/18 04:17 Temperature 99.1 F Pulse Rate 80 76 76 Respiratory Rate 28 H 19 19 Blood Pressure 81/47 L 84/56 L 78/41 L Pulse Oximetry 97 05/28/18 05:04 05/28/18 06:00 05/28/18 07:00 Temperature 99.7 F H 98.7 F Pulse Rate 84 86 82 Respiratory Rate 22 21 21 Blood Pressure 100/60 94/55 L Pulse Oximetry 96 97 93 L 05/28/18 07:08 05/28/18 09:00 05/28/18 09:55 Temperature Pulse Rate 84 Respiratory Rate Blood Pressure 90/60 L Pulse Oximetry 96 05/28/18 12:17 Temperature 98.5 F Pulse Rate 88 Respiratory Rate 30 H Blood Pressure 102/61 Pulse Oximetry 92 L Intake & Output 05/27/18 05/28/18 05/28/18 18:59 06:59 18:59 Intake Total 2649.2 / 2649.2 1999 1040 / 1040 Output Total 1800 / 1800 200 / 200 Balance 849.2 / 849.2 1800 / 1800 1040 / 1040 Weight 103.8 kg Intake: IV 1499.2 / 1499.2 1999 1040 / 1040 NS + KCl 20 mEq Inj 1,000 ML @ 1999 100 mls/hr IV.CONT .Q10H ANGI Rx #:[id number] NS Inj 1,000 ML @ 125 mls/hr IV 500 / 500 .CONT .Q8H ANGI Rx#:[id number] Flexbumin 25% Inj 100 ML @ 60 100 / 100 mls/hr IV.SIG ONCE ONE Rx#: [id number] Calcium Gluconate Inj 2 GM In 120 / 120 D5W Inj 100 ML @ 120 mls/hr IV. SIG ONCE ONE Rx#:[id number] Magnesium Sulfate 1 gm/D5W 100 200 / 200 ml Premix 100 ML @ 100 mls/hr IV.SIG Q1H ANGI Rx#:[id number] Magnesium Sulfate Inj 4 GM In 200 / 200 NS Inj 92 ML @ 50 mls/hr IV.SIG UNSCH PRN Rx#:[id number] MVI-12 Inj 10 ML Folvite Inj 1 510.2 / 510.2 MG In NS Inj 500 ML @ 125 mls/ hr IV.SIG DAILY ANGI Rx#: [id number] SandoSTATIN Inj 500 MCG In NS 189 / 189 Inj 500 ML @ 50 mls/hr IV.SIG Q10H ANGI Rx#:[id number] KCl 20 mEq Premix Inj 20 meq In 200 / 200 300 / 300 100 ml @ 50 mls/hr IV.SIG Q2H PRN Rx#:[id number] Rocephin Inj 2,000 MG In NS Inj 100 / 100 100 ML @ 200 mls/hr IV.SIG Q24H ANGI Rx#:[id number] Oral 1150 / 1150 Output: Urine 1550 / 1550 200 / 200 Stool 250 / 250 Other: Date of Last Bowel Movement 05/27/18 05/27/18 05/28/18 Narrative: GENERAL: AAOx3, no acute distress SKIN: Warm and dry. No rashes, jaundice from waist up HEAD: Atruamtic, normocephalic. EYES: Scleral icterus present. No injection or drainage. ENT: Moist mucous membranes, patent nares, no erythema of oropharynx. NECK: Supple, trachea midline. No JVD or lymphadenopathy. Normal thyroid. CARDIOVASCULAR: Regular rate and rhythm. No murmurs, gallops, or rubs. RESPIRATORY: Breath sounds clear equal bilaterally. No crackles or wheezes. No accessory muscle use. GASTROINTESTINAL: Abdomen round, full, non-tender, normal active bowel sounds MUSCULOSKELETAL: No cyanosis, or edema. NEURO: No asterixis, CN II-XII grossly intact, no focal deficits, no slurring of speech Results - Labs CBC & Chem 7: 05/27/18 04:55 05/28/18 04:45 Laboratory Results - last 24 hr 05/27/18 05/27/18 05/28/18 14:13 14:13 04:45 Sodium Potassium Chloride Carbon Dioxide Anion Gap BUN Creatinine Estimated GFR Random Glucose Calcium Prot Corrected Calcium Magnesium Total Bilirubin AST ALT Alkaline Phosphatase Ammonia 37 H Total Protein Albumin Peritoneal RBC Cancelled Periton Nuc Cells Cancelled Periton Neutrophils Cancelled Periton Lymphocytes Cancelled Peritoneal Monocytes Cancelled Peritoneal Eosinophils Cancelled Peritoneal Basophils Cancelled Periton Mesothelial Cancelled Periton Histiocytes Cancelled Peritoneal Plasma Cell Cancelled Peritoneal Other Cells Cancelled Peritoneal Fld Comment Cancelled Peritoneal Tot Protein 1.9 Peritoneal Albumin 0.7 Peritoneal LDH 94 08/14/18 04:45 Sodium 136 Potassium 3.0 L Chloride 104 Carbon Dioxide 25.6 Anion Gap 6 BUN 5 L Creatinine 0.39 L Estimated GFR Greater than 89 Random Glucose 92 Calcium 7.0 L* Prot Corrected Calcium 7.3 L* Magnesium 1.0 L Total Bilirubin 9.9 H AST 182 H ALT 44 Alkaline Phosphatase 144 H Ammonia Total Protein 6.5 Albumin 1.7 L Peritoneal RBC Periton Nuc Cells Periton Neutrophils Periton Lymphocytes Peritoneal Monocytes Peritoneal Eosinophils Peritoneal Basophils Periton Mesothelial Periton Histiocytes Peritoneal Plasma Cell Peritoneal Other Cells Peritoneal Fld Comment Peritoneal Tot Protein Peritoneal Albumin Peritoneal LDH - Imaging Impressions Paracentesis Ultrasound 05/27/18 00:00 CONCLUSION: 1. Uncomplicated ultrasound-guided paracentesis. Assessment and Plan - Assessment (1) EtOH dependence Code(s): F10.20 - Alcohol dependence, uncomplicated Status: Acute Plan: [facility] protocol Patient education (2) Liver failure Code(s): K72.90 - Hepatic failure, unspecified without coma Status: Acute Plan: Rule out alternative causes of an alcohol which is the most likely etiology Follow-up iron levels and viral hepatitis studies CT abdomen pelvis does show significant ascites Lasix and diurese patient Patient may benefit from Aldactone and lactulose We will add a beta-maria l (3) GI bleed Code(s): K92.2 - Gastrointestinal hemorrhage, unspecified Status: Acute Plan: Patient on Protonix Follow-up hemoglobin remained stable GI consult for possible endoscopy Avoid NSAIDs (4) Metabolic encephalopathy Code(s): G93.41 - Metabolic encephalopathy Status: Acute Plan: Follow-up ammonia level Likely due to liver disease Continue medical management with [facility] protocol (5) Anemia Code(s): D64.9 - Anemia, unspecified Status: Acute Plan: Workup consistent with GI blood losses Type and screen completed (6) Hepatitis C antibody positive in blood Code(s): R76.8 - Other specified abnormal immunological findings in serum Status: Acute Plan: Follow-up RNA PCR - Plan Metabolic encephalopathy Patient presented with confusion and elevated ammonia level Ammonia level is approaching normal at this point, patient is clear Diarrhea has become persistent, will cut back on lactulose and follow ammonia tomorrow with a.m. labs Ascites s/p paracentesis, 2400 mL removed 05/27/2018 Chronic liver failure Patient reports he no longer drinks alcohol Baseline INR is 1.6 naturally Continue with Lasix diuresis Consider Aldactone Beta-maria l added on this admission GI bleed with anemia EGD showed esophageal varices, 2 bands placed by GI, no complications Hemoglobin appears stable in the 8.3-8.4 range Continue to follow hemoglobin trend with CBC Appreciate gastroenterology consult DVT prophylaxis SCD hose, chemoprophylaxis contraindicated due to natural INR level of 1.6
[2018-05-28 18:28] LABS: Potassium 3.8 meq/L (3.5-5.1)
[2018-05-28 18:39] LABS: Magnesium 1.8 mg/dL (1.5-2.5)
[2018-05-28] MEDS: rifAXIMin 550 MG Tablet PO SCH (20:24)
[2018-05-29 04:34] LABS: Hematocrit 24.8 % (39.0-51.0); Hemoglobin 8.4 gm/dL (13.0-17.0); Mean Corpuscular HGB Conc 33.9 % (32.0-36.0); Mean Corpuscular Hemoglobin 37.1 pg (27.0-34.0); Mean Corpuscular Volume 109.4 fL (80.0-100.0); Mean Platelet Volume 9.9 fL (7.0-11.0); Platelet Count 104 th/mm3 (150-450); Red Blood Count 2.27 mil/mm3 (4.50-5.90); Red Cell Distribution Width 17.7 % (11.6-17.2); White Blood Count 9.6 th/mm3 (4.0-11.0)
[2018-05-29 04:39] LABS: Chloride 106 meq/L (98-107); Potassium 3.6 meq/L (3.5-5.1); Sodium 136 meq/L (136-145)
[2018-05-29 04:50] LABS: Anion Gap 6 meq/L (5-15); Blood Urea Nitrogen 3 mg/dL (7-18); Calcium 7.4 mg/dL (8.5-10.1); Carbon Dioxide 23.6 meq/L (21.0-32.0); Glomerular Filtration Rate Greater Than 89 mL/min (>89); Glucose,Random 95 mg/dL (74-106)
[2018-05-29 05:03] LABS: Total Protein 6.5 g/dL (6.4-8.2)
[2018-05-29] MEDS: Potassium Bicarbonate 25 MEQ Effervescent Tablet PO SCH (08:18)
[2018-05-29] MEDS: Pantoprazole Inj 40 MG Vial IV.PUSH SCH (08:18)
[2018-05-29] MEDS: rifAXIMin 550 MG Tablet PO SCH ×2 (08:19→20:00)
[2018-05-29] MEDS ORDERED: Calcium Gluconate Inj 1 GM in Dextrose 5% in Water Inj 100 ML IV.SIG ONE ×2 (09:00)
[2018-05-29] MEDS: Multivitamin Inj 10 ML, Folic Acid Inj 1 MG in Sodium Chlor 0.9% Inj 500 ML IV.SIG SCH (11:11)
[2018-05-29] MEDS: Nadolol 20 MG Tablet PO SCH (11:12)
--- NOTE | 2018-05-29 12:30 | P.PNGI ---
Subjective Interval history: Sedated, restrained. No reports of gi bleeding.As per nurse nausea after eating Physical Exam Vital signs: Vital Signs 05/28/18 13:00 05/28/18 13:17 05/28/18 14:00 Temperature Pulse Rate 94 H 92 H 86 Respiratory Rate 31 H 19 30 H Blood Pressure 117/72 Pulse Oximetry 05/28/18 14:17 05/28/18 15:00 05/28/18 15:17 Temperature Pulse Rate 84 86 84 Respiratory Rate 25 H 30 H 26 H Blood Pressure 95/51 L 86/52 L Pulse Oximetry 05/28/18 15:26 05/28/18 15:29 05/28/18 15:33 Temperature Pulse Rate 86 84 98 H Respiratory Rate 28 H 24 39 H Blood Pressure 99/54 L 101/52 L 115/64 Pulse Oximetry 05/28/18 16:00 05/28/18 16:17 05/28/18 17:00 Temperature Pulse Rate 102 H 92 H 92 H Respiratory Rate 34 H 27 H 21 Blood Pressure 102/73 Pulse Oximetry 05/28/18 17:17 05/28/18 18:00 05/28/18 18:17 Temperature Pulse Rate 88 98 H 92 H Respiratory Rate 25 H 33 H 28 H Blood Pressure 95/58 L 110/56 L Pulse Oximetry 05/28/18 19:17 05/28/18 20:00 05/28/18 20:17 Temperature 101.4 F H Pulse Rate 98 H 94 H 88 Respiratory Rate 38 H 25 H Blood Pressure 110/67 97/62 L Pulse Oximetry 95 96 05/28/18 21:33 05/28/18 23:26 05/29/18 00:00 Temperature 99.8 F H 99.6 F Pulse Rate 86 94 H 84 Respiratory Rate 24 24 20 Blood Pressure 93/44 L 102/71 Pulse Oximetry 94 L 95 05/29/18 03:00 05/29/18 04:00 05/29/18 05:09 Temperature 99.8 F H Pulse Rate 88 84 90 Respiratory Rate 25 H 22 23 Blood Pressure 105/65 87/53 L 98/63 L Pulse Oximetry 05/29/18 08:00 05/29/18 08:10 05/29/18 12:00 Temperature 98.5 F 98.4 F Pulse Rate 82 Respiratory Rate Blood Pressure Pulse Oximetry 94 L Intake & Output 05/28/18 05/29/18 05/29/18 18:59 06:59 18:59 Intake Total 2760 / 2760 1220 / 1220 1100 / 1100 Output Total 1050 / 1050 200 / 200 Balance 2760 / 2760 170 / 170 900 / 900 Weight 105.3 kg Intake: IV 2760 / 2760 1000 / 1000 1100 / 1100 NS + KCl 20 mEq Inj 1,000 ML @ 1000 / 1000 1000 / 1000 1000 / 1000 100 mls/hr IV.CONT .Q10H ANGI Rx #:[id number] Flexbumin 25% Inj 100 ML @ 60 100 / 100 mls/hr IV.SIG ONCE ONE Rx#: [id number] Calcium Gluconate Inj 2 GM In 120 / 120 D5W Inj 100 ML @ 120 mls/hr IV. SIG ONCE ONE Rx#:[id number] Magnesium Sulfate 1 gm/D5W 100 200 / 200 ml Premix 100 ML @ 100 mls/hr IV.SIG Q1H ANGI Rx#:[id number] Magnesium Sulfate Inj 4 GM In 200 / 200 NS Inj 92 ML @ 50 mls/hr IV.SIG UNSCH PRN Rx#:[id number] MVI-12 Inj 10 ML Folvite Inj 1 520 / 520 MG In NS Inj 500 ML @ 125 mls/ hr IV.SIG DAILY ANGI Rx#: [id number] KCl 20 mEq Premix Inj 20 meq In 400 / 400 100 ml @ 50 mls/hr IV.SIG Q2H PRN Rx#:[id number] Rocephin Inj 2,000 MG In NS Inj 100 / 100 100 / 100 100 ML @ 200 mls/hr IV.SIG Q24H ANGI Rx#:[id number] Oral 220 / 220 Output: Urine 600 / 600 200 / 200 Stool 450 / 450 Other: # Voids 3 Date of Last Bowel Movement 05/28/18 05/29/18 05/29/18 - Constitutional no acute distress Comments: sedated, restrained - Routine HEENT Exam Head: Present: normocephalic Eye: Present: EOMI, conjunctival icterus ENT: Present: mucous membranes moist - Routine Respiratory Exam Present: accessory muscle use - Routine Cardiovascular Exam Present: RRR - Routine Abdominal Exam Present: soft - Routine Extremities Exam Present: pulses intact - Routine Skin Exam Present: intact, jaundice - Routine Neurological Exam sedated Results - Labs CBC & Chem 7: 05/29/18 04:20 05/29/18 04:20 Laboratory Results - last 24 hr 05/28/18 05/28/18 05/29/18 18:15 18:15 04:20 WBC 9.6 RBC 2.27 L Hgb 8.4 L Hct 24.8 L MCV 109.4 H MCH 37.1 H MCHC 33.9 RDW 17.7 H Plt Count 104 L MPV 9.9 Sodium Potassium 3.8 D Chloride Carbon Dioxide Anion Gap BUN Creatinine Estimated GFR Random Glucose Calcium Prot Corrected Calcium Magnesium 1.8 D Ammonia 22 Total Protein 05/29/18 05/29/18 04:20 04:20 WBC RBC Hgb Hct MCV MCH MCHC RDW Plt Count MPV Sodium 136 Potassium 3.6 Chloride 106 Carbon Dioxide 23.6 Anion Gap 6 BUN 3 L Creatinine 0.44 L Estimated GFR Greater than 89 Random Glucose 95 Calcium 7.4 L* Prot Corrected Calcium 7.7 L Magnesium Ammonia 21 Total Protein 6.5 Assessment and Plan - Attending Attestation gi bleeding most likely secondary esophageal varices -s/p banding portal gastropathy liver cirrhosis secondary etoh-liver w-up pending DT'S Recommendations soft diet monitor lfts, cbc closely egd banding in 8 weeks colonoscopy same time avoid etoh, hepatotoxics
--- NOTE | 2018-05-29 15:54 | P.PNIM ---
Subjective Interval history: Patient has had decline in his mental function, somewhat confused and pulling at IVs and catheter. His ammonia level was normal last night and is normal. It has been 4-5 days since his last alcoholic beverage. Physical Exam Vital signs: Vital Signs 05/28/18 16:00 05/28/18 16:17 05/28/18 17:00 Temperature Pulse Rate 102 H 92 H 92 H Respiratory Rate 34 H 27 H 21 Blood Pressure 102/73 Pulse Oximetry 05/28/18 17:17 05/28/18 18:00 05/28/18 18:17 Temperature Pulse Rate 88 98 H 92 H Respiratory Rate 25 H 33 H 28 H Blood Pressure 95/58 L 110/56 L Pulse Oximetry 05/28/18 19:17 05/28/18 20:00 05/28/18 20:17 Temperature 101.4 F H Pulse Rate 98 H 94 H 88 Respiratory Rate 38 H 25 H Blood Pressure 110/67 97/62 L Pulse Oximetry 95 96 05/28/18 21:33 05/28/18 23:26 05/29/18 00:00 Temperature 99.8 F H 99.6 F Pulse Rate 86 94 H 84 Respiratory Rate 24 24 20 Blood Pressure 93/44 L 102/71 Pulse Oximetry 94 L 95 05/29/18 03:00 05/29/18 04:00 05/29/18 05:09 Temperature 99.8 F H Pulse Rate 88 84 90 Respiratory Rate 25 H 22 23 Blood Pressure 105/65 87/53 L 98/63 L Pulse Oximetry 05/29/18 07:33 05/29/18 08:00 05/29/18 08:10 Temperature 98.5 F 98.5 F Pulse Rate 82 82 Respiratory Rate 20 Blood Pressure 99/66 L Pulse Oximetry 94 L 94 L 05/29/18 10:24 05/29/18 12:00 05/29/18 12:06 Temperature 98.4 F 98.4 F Pulse Rate 89 Respiratory Rate 23 Blood Pressure 108/61 108/61 Pulse Oximetry 96 Intake & Output 05/28/18 05/29/18 05/29/18 18:59 06:59 18:59 Intake Total 2760 / 2760 1220 / 1220 1210 / 1210 Output Total 1050 / 1050 200 / 200 Balance 2760 / 2760 170 / 170 1010 / 1010 Weight 105.3 kg Intake: IV 2760 / 2760 1000 / 1000 1210 / 1210 NS + KCl 20 mEq Inj 1,000 ML @ 1000 / 1000 1000 / 1000 1000 / 1000 100 mls/hr IV.CONT .Q10H ANGI Rx #:[id number] Flexbumin 25% Inj 100 ML @ 60 100 / 100 mls/hr IV.SIG ONCE ONE Rx#: [id number] Calcium Gluconate Inj 1 GM In 120 / 120 110 / 110 D5W Inj 100 ML @ 110 mls/hr IV. SIG ONCE ONE Rx#:[id number] Magnesium Sulfate 1 gm/D5W 100 200 / 200 ml Premix 100 ML @ 100 mls/hr IV.SIG Q1H ANGI Rx#:[id number] Magnesium Sulfate Inj 4 GM In 200 / 200 NS Inj 92 ML @ 50 mls/hr IV.SIG UNSCH PRN Rx#:[id number] MVI-12 Inj 10 ML Folvite Inj 1 520 / 520 MG In NS Inj 500 ML @ 125 mls/ hr IV.SIG DAILY ANGI Rx#: [id number] KCl 20 mEq Premix Inj 20 meq In 400 / 400 100 ml @ 50 mls/hr IV.SIG Q2H PRN Rx#:[id number] Rocephin Inj 2,000 MG In NS Inj 100 / 100 100 / 100 100 ML @ 200 mls/hr IV.SIG Q24H ANGI Rx#:[id number] Oral 220 / 220 Output: Urine 600 / 600 200 / 200 Stool 450 / 450 Other: # Voids 3 Date of Last Bowel Movement 05/28/18 05/29/18 05/29/18 Narrative: GENERAL: AAOx1, mild confusion SKIN: Warm and dry. No rashes, jaundice from waist up HEAD: Atruamtic, normocephalic. EYES: Scleral icterus present. No injection or drainage. ENT: Moist mucous membranes, patent nares, no erythema of oropharynx. NECK: Supple, trachea midline. No JVD or lymphadenopathy. Normal thyroid. CARDIOVASCULAR: Regular rate and rhythm. No murmurs, gallops, or rubs. RESPIRATORY: Breath sounds clear equal bilaterally. No crackles or wheezes. No accessory muscle use. GASTROINTESTINAL: Abdomen round, full, non-tender, normal active bowel sounds MUSCULOSKELETAL: No cyanosis, or edema. NEURO: No asterixis, CN II-XII grossly intact, no focal deficits, no slurring of speech Results - Labs CBC & Chem 7: 05/29/18 04:20 05/29/18 04:20 Laboratory Results - last 24 hr 05/28/1818 18 18:15 18:15 04:20 WBC 9.6 RBC 2.27 L Hgb 8.4 L Hct 24.8 L MCV 109.4 H MCH 37.1 H MCHC 33.9 RDW 17.7 H Plt Count 104 L MPV 9.9 Sodium Potassium 3.8 D Chloride Carbon Dioxide Anion Gap BUN Creatinine Estimated GFR Random Glucose Calcium Prot Corrected Calcium Magnesium 1.8 D Ammonia 22 Total Protein 05/29/18 05/29/18 04:20 04:20 WBC RBC Hgb Hct MCV MCH MCHC RDW Plt Count MPV Sodium 136 Potassium 3.6 Chloride 106 Carbon Dioxide 23.6 Anion Gap 6 BUN 3 L Creatinine 0.44 L Estimated GFR Greater than 89 Random Glucose 95 Calcium 7.4 L* Prot Corrected Calcium 7.7 L Magnesium Ammonia 21 Total Protein 6.5 Assessment and Plan - Assessment (1) EtOH dependence Code(s): F10.20 - Alcohol dependence, uncomplicated Status: Acute Plan: [facility] protocol Patient education (2) Liver failure Code(s): K72.90 - Hepatic failure, unspecified without coma Status: Acute Plan: Rule out alternative causes of an alcohol which is the most likely etiology Follow-up iron levels and viral hepatitis studies CT abdomen pelvis does show significant ascites Lasix and diurese patient Patient may benefit from Aldactone and lactulose We will add a beta-maria l (3) GI bleed Code(s): K92.2 - Gastrointestinal hemorrhage, unspecified Status: Acute Plan: Patient on Protonix Follow-up hemoglobin remained stable GI consult for possible endoscopy Avoid NSAIDs (4) Metabolic encephalopathy Code(s): G93.41 - Metabolic encephalopathy Status: Acute Plan: Follow-up ammonia level Likely due to liver disease Continue medical management with [facility] protocol (5) Anemia Code(s): D64.9 - Anemia, unspecified Status: Acute Plan: Workup consistent with GI blood losses Type and screen completed (6) Hepatitis C antibody positive in blood Code(s): R76.8 - Other specified abnormal immunological findings in serum Status: Acute Plan: Follow-up RNA PCR - Plan Metabolic encephalopathy Patient presented with confusion and elevated ammonia level Ammonia level is approaching normal at this point, patient is clear Ammonia is remaining stable on the lactulose dosing Confusion Unable to blame this on ammonia level at this time 4-5 days since last alcoholic drink Treating for delirium tremens, continue CIWA protocol Ascites s/p paracentesis, 2400 mL removed 05/27/2018 Chronic liver failure Baseline INR is 1.6 naturally Continue with Lasix diuresis Consider Aldactone Beta-maria l added on this admission GI bleed with anemia EGD showed esophageal varices, 2 bands placed by GI, no complications Hemoglobin appears stable in the 8.3-8.4 range Continue to follow hemoglobin trend with CBC Appreciate gastroenterology consult DVT prophylaxis SCD hose, chemoprophylaxis contraindicated due to natural INR level of 1.6
[2018-05-30 04:43] LABS: Hematocrit 24.5 % (39.0-51.0); Hemoglobin 8.3 gm/dL (13.0-17.0); Mean Corpuscular Hemoglobin 37.2 pg (27.0-34.0); Mean Corpuscular Volume 109.4 fL (80.0-100.0); Mean Platelet Volume 9.6 fL (7.0-11.0); Platelet Count 121 th/mm3 (150-450); Red Blood Count 2.24 mil/mm3 (4.50-5.90); Red Cell Distribution Width 18.8 % (11.6-17.2); White Blood Count 9.7 th/mm3 (4.0-11.0)
[2018-05-30 04:53] LABS: Chloride 106 meq/L (98-107); Potassium 3.4 meq/L (3.5-5.1); Sodium 136 meq/L (136-145)
[2018-05-30 06:00] LABS: Anion Gap 8 meq/L (5-15); Blood Urea Nitrogen 3 mg/dL (7-18); Carbon Dioxide 22.2 meq/L (21.0-32.0); Glomerular Filtration Rate Greater Than 89 mL/min (>89); Glucose,Random 99 mg/dL (74-106)
[2018-05-30 07:00] LABS: Alpha Fetoprotein Tumor Marker 2.3 ng/mL (0.5-8.0)
[2018-05-30 07:13] LABS: Total Protein 6.3 g/dL (6.4-8.2)
[2018-05-30] MEDS: rifAXIMin 550 MG Tablet PO SCH ×2 (08:46→20:24)
[2018-05-30] MEDS: Nadolol 20 MG Tablet PO SCH (08:46)
[2018-05-30] MEDS: Pantoprazole Inj 40 MG Vial IV.PUSH SCH (08:52)
[2018-05-30] MEDS ORDERED: Calcium Gluconate Inj 2 GM in Dextrose 5% in Water Inj 100 ML IV.SIG ONE ×2 (09:00)
[2018-05-30] MEDS: Multivitamin Inj 10 ML, Folic Acid Inj 1 MG in Sodium Chlor 0.9% Inj 500 ML IV.SIG SCH (09:02)
--- NOTE | 2018-05-30 12:50 | P.PNGI ---
Subjective Interval history: More confused today per IM note. Able to answer questions for me Physical Exam Vital signs: Vital Signs 05/29/18 16:00 05/29/18 19:00 05/29/18 19:50 Temperature 98.5 F Pulse Rate Respiratory Rate Blood Pressure Pulse Oximetry 99 95 05/29/18 20:00 05/30/18 00:00 05/30/18 04:00 Temperature 100.5 F H 100.6 F H 100.3 F H Pulse Rate 91 H 95 H 94 H Respiratory Rate 26 H 19 19 Blood Pressure 97/53 L 105/63 113/69 Pulse Oximetry 95 95 95 05/30/18 08:00 05/30/18 08:03 05/30/18 12:00 Temperature 99.4 F 100 F H Pulse Rate Respiratory Rate 16 Blood Pressure Pulse Oximetry 93 L Intake & Output 05/29/18 05/30/18 05/30/18 18:59 06:59 18:59 Intake Total 2680.2 / 2680.2 2320 / 2320 Output Total 2500 / 2500 740 / 740 Balance 180.2 / 180.2 1580 / 1580 Weight 105.3 kg Intake: IV 1720.2 / 1720.2 1999 NS + KCl 20 mEq Inj 1,000 ML @ 1000 / 1000 1999 100 mls/hr IV.CONT .Q10H ANGI Rx #:[id number] Calcium Gluconate Inj 1 GM In 110 / 110 D5W Inj 100 ML @ 110 mls/hr IV. SIG ONCE ONE Rx#:[id number] MVI-12 Inj 10 ML Folvite Inj 1 510.2 / 510.2 MG In NS Inj 500 ML @ 125 mls/ hr IV.SIG DAILY ANGI Rx#: [id number] Rocephin Inj 2,000 MG In NS Inj 100 / 100 100 ML @ 200 mls/hr IV.SIG Q24H ANGI Rx#:[id number] Oral 960 / 960 320 / 320 Output: Urine 1999 740 / 740 Stool 280 / 280 Wound Drainage 220 / 220 Right Upper Abdomen 220 / 220 Other: # Incontinent Voids 3 Date of Last Bowel Movement 05/29/18 05/29/18 - Constitutional no acute distress - Routine HEENT Exam Head: Present: normocephalic Eye: Present: EOMI, PERRL ENT: Present: mucous membranes moist - Routine Neck Exam Present: supple - Routine Respiratory Exam Present: accessory muscle use - Routine Cardiovascular Exam Present: RRR - Routine Abdominal Exam Present: distended Results - Labs CBC & Chem 7: 05/30/18 04:35 05/30/18 04:35 Laboratory Results - last 24 hr 05/29/18 05/30/18 05/30/18 19:00 04:35 04:35 WBC 9.7 RBC 2.24 L Hgb 8.3 L Hct 24.5 L MCV 109.4 H MCH 37.2 H MCHC 34.0 RDW 18.8 H Plt Count 121 L MPV 9.6 Sodium 136 Potassium 3.4 L Chloride 106 Carbon Dioxide 22.2 Anion Gap 8 BUN 3 L Creatinine 0.45 L Estimated GFR Greater than 89 Random Glucose 99 Calcium 7.0 L* Prot Corrected Calcium 7.4 L* Iron 53 L Ferritin 941 H Direct Bilirubin 10.3 H Ammonia Total Protein 6.3 L Tumor Marker AFP 2.3 05/30/18 04:35 WBC RBC Hgb Hct MCV MCH MCHC RDW Plt Count MPV Sodium Potassium Chloride Carbon Dioxide Anion Gap BUN Creatinine Estimated GFR Random Glucose Calcium Prot Corrected Calcium Iron Ferritin Direct Bilirubin Ammonia 18 Total Protein Tumor Marker AFP Assessment and Plan - Plan No bleeding, has ascites. Diuretics. May need FFP and drainage of ascites.
--- NOTE | 2018-05-30 16:49 | P.PNIM ---
Subjective Interval history: Patient was more mentally clear today but had relapse of confusion this afternoon. Physical Exam Vital signs: Vital Signs 05/29/18 19:00 05/29/18 19:50 05/29/18 20:00 Temperature 100.5 F H Pulse Rate 91 H Respiratory Rate 26 H Blood Pressure 97/53 L Pulse Oximetry 99 95 95 05/30/18 00:00 05/30/18 04:00 05/30/18 08:00 Temperature 100.6 F H 100.3 F H 99.4 F Pulse Rate 95 H 94 H Respiratory Rate 19 19 16 Blood Pressure 105/63 113/69 Pulse Oximetry 95 95 05/30/18 08:03 05/30/18 12:00 Temperature 100 F H Pulse Rate Respiratory Rate Blood Pressure Pulse Oximetry 93 L Intake & Output 05/29/18 05/30/18 05/30/18 18:59 06:59 18:59 Intake Total 2680.2 / 2680.2 2320 / 2320 Output Total 2500 / 2500 740 / 740 Balance 180.2 / 180.2 1580 / 1580 Weight 105.3 kg Intake: IV 1720.2 / 1720.2 1999 NS + KCl 20 mEq Inj 1,000 ML @ 1000 / 1000 1999 / 1999 100 mls/hr IV.CONT .Q10H ANGI Rx #:[id number] Calcium Gluconate Inj 1 GM In 110 / 110 D5W Inj 100 ML @ 110 mls/hr IV. SIG ONCE ONE Rx#:[id number] MVI-12 Inj 10 ML Folvite Inj 1 510.2 / 510.2 MG In NS Inj 500 ML @ 125 mls/ hr IV.SIG DAILY ANGI Rx#: [id number] Rocephin Inj 2,000 MG In NS Inj 100 / 100 100 ML @ 200 mls/hr IV.SIG Q24H ANGI Rx#:[id number] Oral 960 / 960 320 / 320 Output: Urine 1999 740 / 740 Stool 280 / 280 Wound Drainage 220 / 220 Right Upper Abdomen 220 / 220 Other: # Incontinent Voids 3 Date of Last Bowel Movement 05/29/18 05/29/18 Narrative: GENERAL: AAOx1, mild confusion SKIN: Warm and dry. No rashes, jaundice from waist up HEAD: Atruamtic, normocephalic. EYES: Scleral icterus present. No injection or drainage. ENT: Moist mucous membranes, patent nares, no erythema of oropharynx. NECK: Supple, trachea midline. No JVD or lymphadenopathy. Normal thyroid. CARDIOVASCULAR: Regular rate and rhythm. No murmurs, gallops, or rubs. RESPIRATORY: Breath sounds clear equal bilaterally. No crackles or wheezes. No accessory muscle use. GASTROINTESTINAL: Abdomen round, full, non-tender, normal active bowel sounds MUSCULOSKELETAL: No cyanosis, or edema. NEURO: No asterixis, CN II-XII grossly intact, no focal deficits, no slurring of speech Results - Labs CBC & Chem 7: 05/30/18 04:35 05/30/18 04:35 Laboratory Results - last 24 hr 05/29/18 05/30/18 05/30/18 19:00 04:35 04:35 WBC 9.7 RBC 2.24 L Hgb 8.3 L Hct 24.5 L MCV 109.4 H MCH 37.2 H MCHC 34.0 RDW 18.8 H Plt Count 121 L MPV 9.6 Sodium 136 Potassium 3.4 L Chloride 106 Carbon Dioxide 22.2 Anion Gap 8 BUN 3 L Creatinine 0.45 L Estimated GFR Greater than 89 Random Glucose 99 Calcium 7.0 L* Prot Corrected Calcium 7.4 L* Iron 53 L Ferritin 941 H Direct Bilirubin 10.3 H Ammonia Total Protein 6.3 L Tumor Marker AFP 2.3 05/30/18 04:35 WBC RBC Hgb Hct MCV MCH MCHC RDW Plt Count MPV Sodium Potassium Chloride Carbon Dioxide Anion Gap BUN Creatinine Estimated GFR Random Glucose Calcium Prot Corrected Calcium Iron Ferritin Direct Bilirubin Ammonia 18 Total Protein Tumor Marker AFP Assessment and Plan - Assessment (1) EtOH dependence Code(s): F10.20 - Alcohol dependence, uncomplicated Status: Acute Plan: [facility] protocol Patient education (2) Liver failure Code(s): K72.90 - Hepatic failure, unspecified without coma Status: Acute Plan: Rule out alternative causes of an alcohol which is the most likely etiology Follow-up iron levels and viral hepatitis studies CT abdomen pelvis does show significant ascites Lasix and diurese patient Patient may benefit from Aldactone and lactulose We will add a beta-maria l (3) GI bleed Code(s): K92.2 - Gastrointestinal hemorrhage, unspecified Status: Acute Plan: Patient on Protonix Follow-up hemoglobin remained stable GI consult for possible endoscopy Avoid NSAIDs (4) Metabolic encephalopathy Code(s): G93.41 - Metabolic encephalopathy Status: Acute Plan: Follow-up ammonia level Likely due to liver disease Continue medical management with CIWA protocol (5) Anemia Code(s): D64.9 - Anemia, unspecified Status: Acute Plan: Workup consistent with GI blood losses Type and screen completed (6) Hepatitis C antibody positive in blood Code(s): R76.8 - Other specified abnormal immunological findings in serum Status: Acute Plan: Follow-up RNA PCR - Plan Metabolic encephalopathy Patient presented with confusion and elevated ammonia level Ammonia level is approaching normal at this point, patient is clear Ammonia is remaining stable on the lactulose dosing Delirium tremens seems to be the underlying issue for his intermittent confusion at this time Continue CIWA protocol Ascites s/p paracentesis, 2400 mL removed 05/27/2018 Site was leaking yesterday, pressure dressing applied, remains dry Chronic liver failure Baseline INR is 1.6 naturally Continue with Lasix diuresis Consider Aldactone Beta-maria l added on this admission GI bleed with anemia EGD showed esophageal varices, 2 bands placed by GI, no complications Hemoglobin appears stable in the 8.3-8.4 range Continue to follow hemoglobin trend with CBC Appreciate gastroenterology consult DVT prophylaxis SCD hose, chemoprophylaxis contraindicated due to natural INR level of 1.6
[2018-05-31 04:47] LABS: Hematocrit 26.1 % (39.0-51.0); Hemoglobin 8.7 gm/dL (13.0-17.0); Mean Corpuscular HGB Conc 33.2 % (32.0-36.0); Mean Corpuscular Hemoglobin 36.7 pg (27.0-34.0); Mean Corpuscular Volume 110.6 fL (80.0-100.0); Mean Platelet Volume 8.9 fL (7.0-11.0); Platelet Count 161 th/mm3 (150-450); Red Blood Count 2.37 mil/mm3 (4.50-5.90); Red Cell Distribution Width 19.4 % (11.6-17.2); White Blood Count 9.6 th/mm3 (4.0-11.0)
[2018-05-31 04:55] LABS: Chloride 108 meq/L (98-107); Potassium 3.5 meq/L (3.5-5.1); Sodium 136 meq/L (136-145)
[2018-05-31 05:08] LABS: Anion Gap 6 meq/L (5-15); Blood Urea Nitrogen 4 mg/dL (7-18); Calcium 7.3 mg/dL (8.5-10.1); Carbon Dioxide 21.9 meq/L (21.0-32.0); Glomerular Filtration Rate Greater Than 89 mL/min (>89); Glucose,Random 81 mg/dL (74-106)
[2018-05-31 05:28] LABS: Total Protein 6.1 g/dL (6.4-8.2)
[2018-05-31] MEDS: Nadolol 20 MG Tablet PO SCH (08:29)
[2018-05-31] MEDS: rifAXIMin 550 MG Tablet PO SCH ×2 (09:17→21:05)
[2018-05-31] MEDS: Pantoprazole Inj 40 MG Vial IV.PUSH SCH (09:18)
[2018-05-31] MEDS: Calcium Chloride Inj 1 GM in Dextrose 5% in Water Inj 100 ML IV.SIG ONE ×4 (10:46→12:13)
[2018-05-31] MEDS ORDERED: Lidocaine PF 1% Inj 5 ML Syringe INFILTRATN ONE (12:00)
--- NOTE | 2018-05-31 16:57 | P.PNIM ---
Subjective Interval history: Patient remains mentally clear today, he is off restraints and cooperating with staff. He denies any fevers or abdominal pain. Physical Exam Vital signs: Vital Signs 05/30/18 17:00 05/30/18 17:52 05/30/18 18:00 Temperature Pulse Rate 80 86 84 Respiratory Rate 23 38 H 28 H Blood Pressure 85/58 L 94/62 L Pulse Oximetry 05/30/18 19:00 05/30/18 20:00 05/31/18 00:00 Temperature 99.9 F H 99.9 F H Pulse Rate 90 77 Respiratory Rate 17 15 Blood Pressure 83/63 L 104/58 L Pulse Oximetry 94 L 94 L 92 L 05/31/18 04:00 05/31/18 07:00 05/31/18 07:14 Temperature 99.2 F 99.3 F Pulse Rate 77 82 Respiratory Rate 33 H 31 H Blood Pressure 100/63 98/63 L Pulse Oximetry 96 96 05/31/18 08:00 05/31/18 09:00 05/31/18 10:00 Temperature Pulse Rate 77 86 86 Respiratory Rate 29 H 28 H Blood Pressure Pulse Oximetry 05/31/18 11:00 05/31/18 12:00 05/31/18 12:03 Temperature Pulse Rate 86 82 82 Respiratory Rate 26 H 35 H 29 H Blood Pressure 85/54 L Pulse Oximetry 05/31/18 12:04 05/31/18 12:05 05/31/18 12:06 Temperature 98.7 F Pulse Rate 84 84 84 Respiratory Rate 29 H 25 H 29 H Blood Pressure 90/54 L 85/58 L 83/52 L Pulse Oximetry Intake & Output 05/30/18 05/31/18 05/31/18 18:59 06:59 18:59 Intake Total 1810.2 / 1810.2 1360 / 1360 110 / 110 Output Total 600 / 600 600 / 600 Balance 1210.2 / 1210.2 760 / 760 110 / 110 Weight 105.6 kg Intake: IV 1810.2 / 1810.2 1000 / 1000 110 / 110 NS + KCl 20 mEq Inj 1,000 ML @ 1000 / 1000 1000 / 1000 100 mls/hr IV.CONT .Q10H ANGI Rx #:[id number] Calcium Chloride Inj 1 GM In 110 / 110 D5W Inj 100 ML @ 110 mls/hr IV. SIG ONCE ONE Rx#:[id number] Calcium Gluconate Inj 2 GM In 100 / 100 D5W Inj 100 ML @ 120 mls/hr IV. SIG ONCE ONE Rx#:[id number] MVI-12 Inj 10 ML Folvite Inj 1 510.2 / 510.2 MG In NS Inj 500 ML @ 125 mls/ hr IV.SIG DAILY ANGI Rx#: [id number] Rocephin Inj 2,000 MG In NS Inj 100 / 100 100 ML @ 200 mls/hr IV.SIG Q24H ANGI Rx#:[id number] Oral 360 / 360 Output: Urine 600 / 600 600 / 600 Other: Date of Last Bowel Movement 05/30/18 05/31/18 05/31/18 # Bowel Movements 1 1 Narrative: GENERAL: AAOx1, mild confusion SKIN: Warm and dry. No rashes, jaundice from waist up HEAD: Atruamtic, normocephalic. EYES: Scleral icterus present. No injection or drainage. ENT: Moist mucous membranes, patent nares, no erythema of oropharynx. NECK: Supple, trachea midline. No JVD or lymphadenopathy. Normal thyroid. CARDIOVASCULAR: Regular rate and rhythm. No murmurs, gallops, or rubs. RESPIRATORY: Breath sounds clear equal bilaterally. No crackles or wheezes. No accessory muscle use. GASTROINTESTINAL: Abdomen round, full, non-tender, normal active bowel sounds MUSCULOSKELETAL: No cyanosis, or edema. NEURO: No asterixis, CN II-XII grossly intact, no focal deficits, no slurring of speech Results - Labs CBC & Chem 7: 05/31/18 04:25 05/31/18 04:25 Laboratory Results - last 24 hr 05/27/18 05/29/18 05/29/18 10:43 19:00 19:00 WBC RBC Hgb Hct MCV MCH MCHC RDW Plt Count MPV Sodium Potassium Chloride Carbon Dioxide Anion Gap BUN Creatinine Estimated GFR Random Glucose Calcium Prot Corrected Calcium Ammonia Total Protein DELFINA Screen Neg Anti-Smooth Muscle Ab Negative HCV RNA (PCR) IUs/ml Less than 15 HCV RNA PCR log IUs/ml Less than 1.18 05/31/18 05/31/18 05/31/18 04:25 04:25 04:25 WBC 9.6 RBC 2.37 L Hgb 8.7 L Hct 26.1 L MCV 110.6 H MCH 36.7 H MCHC 33.2 RDW 19.4 H Plt Count 161 D MPV 8.9 Sodium 136 Potassium 3.5 Chloride 108 H Carbon Dioxide 21.9 Anion Gap 6 BUN 4 L Creatinine 0.42 L Estimated GFR Greater than 89 Random Glucose 81 Calcium 7.3 L* Prot Corrected Calcium 7.8 L Ammonia Less than 10 L Total Protein 6.1 L DELFINA Screen Anti-Smooth Muscle Ab HCV RNA (PCR) IUs/ml HCV RNA PCR log IUs/ml Assessment and Plan - Assessment (1) EtOH dependence Code(s): F10.20 - Alcohol dependence, uncomplicated Status: Acute Plan: [facility] protocol Patient education (2) Liver failure Code(s): K72.90 - Hepatic failure, unspecified without coma Status: Acute Plan: Rule out alternative causes of an alcohol which is the most likely etiology Follow-up iron levels and viral hepatitis studies CT abdomen pelvis does show significant ascites Lasix and diurese patient Patient may benefit from Aldactone and lactulose We will add a beta-maria l (3) GI bleed Code(s): K92.2 - Gastrointestinal hemorrhage, unspecified Status: Acute Plan: Patient on Protonix Follow-up hemoglobin remained stable GI consult for possible endoscopy Avoid NSAIDs (4) Metabolic encephalopathy Code(s): G93.41 - Metabolic encephalopathy Status: Acute Plan: Follow-up ammonia level Likely due to liver disease Continue medical management with [facility] protocol (5) Anemia Code(s): D64.9 - Anemia, unspecified Status: Acute Plan: Workup consistent with GI blood losses Type and screen completed (6) Hepatitis C antibody positive in blood Code(s): R76.8 - Other specified abnormal immunological findings in serum Status: Acute Plan: Follow-up RNA PCR - Plan Metabolic encephalopathy Patient presented with confusion and elevated ammonia level Ammonia level is normalized Continue baseline lactulose Continue CIWA protocol, patient is requiring less Ativan today Ascites s/p paracentesis, 2400 mL removed 05/27/2018 Site was leaking yesterday, pressure dressing applied, remains dry Slight increase in firmness of telemetry, nontender Discontinue IV fluids Chronic liver failure Baseline INR is 1.6 naturally Continue with Lasix diuresis Consider Aldactone Beta-maria l added on this admission GI bleed with anemia EGD showed esophageal varices, 2 bands placed by GI, no complications Hemoglobin appears stable in the 8.3-8.4 range Continue to follow hemoglobin trend with CBC Appreciate gastroenterology consult DVT prophylaxis SCD hose, chemoprophylaxis contraindicated due to natural INR level of 1.6
[2018-05-31 21:21] LABS: Alpha 1 Antitrypsin 206 mg/dL (100 - 190)
[2018-06-01 06:07] LABS: Chloride 105 meq/L (98-107); Potassium 3.2 meq/L (3.5-5.1); Sodium 135 meq/L (136-145)
[2018-06-01 06:09] LABS: Calcium 7.5 mg/dL (8.5-10.1)
[2018-06-01 06:10] LABS: Anion Gap 8 meq/L (5-15); Blood Urea Nitrogen 4 mg/dL (7-18); Carbon Dioxide 21.7 meq/L (21.0-32.0); Glucose,Random 96 mg/dL (74-106)
[2018-06-01 06:14] LABS: Glomerular Filtration Rate Greater Than 89 mL/min (>89)
--- NOTE | 2018-06-01 09:28 | P.PNGI ---
Subjective Interval history: Patient is awake answering simple questions Able to rest on his right side without any acute shortness of breath Abdomen soft distended positive for ascites <BreanaCriss M - Last Filed: 06/01/18 09:22> Physical Exam Vital signs: Vital Signs 05/31/18 10:00 05/31/18 11:00 05/31/18 12:00 Temperature Pulse Rate 86 86 82 Respiratory Rate 28 H 26 H 35 H Blood Pressure Pulse Oximetry 05/31/18 12:03 05/31/18 12:04 05/31/18 12:05 Temperature 98.7 F Pulse Rate 82 84 84 Respiratory Rate 29 H 29 H 25 H Blood Pressure 85/54 L 90/54 L 85/58 L Pulse Oximetry 05/31/18 12:06 05/31/18 16:00 05/31/18 20:00 Temperature 98.1 F 98.8 F Pulse Rate 84 72 94 H Respiratory Rate 29 H 20 Blood Pressure 83/52 L 113/68 102/63 Pulse Oximetry 96 06/01/18 00:00 06/01/18 04:00 06/01/18 08:00 Temperature 98.7 F 98.8 F Pulse Rate 93 H 92 H Respiratory Rate 18 20 Blood Pressure 91/62 L 95/60 L Pulse Oximetry 95 95 95 Intake & Output 05/31/18 06/01/18 06/01/18 18:59 06:59 18:59 Intake Total 1110 / 1110 700 / 700 Output Total 930 / 930 1200 / 1200 Balance 180 / 180 -500 / -500 Weight 105.9 kg Intake: IV 1110 / 1110 NS + KCl 20 mEq Inj 1,000 ML @ 1000 / 1000 100 mls/hr IV.CONT .Q10H ANGI Rx #:[id number] Calcium Chloride Inj 1 GM In 110 / 110 D5W Inj 100 ML @ 110 mls/hr IV. SIG ONCE ONE Rx#:[id number] Oral 700 / 700 Output: Urine 930 / 930 1100 / 1100 Stool 100 / 100 Other: Date of Last Bowel Movement 05/31/18 05/31/18 - Constitutional mild distress - Routine HEENT Exam Head: Present: normocephalic ENT: Present: mucous membranes moist - Routine Respiratory Exam Present: accessory muscle use (Low volumes but no audible wheezing or rhonchi) - Routine Cardiovascular Exam Present: S1, S2 - Routine Abdominal Exam Present: soft, distended (Large distended abdomen, denies any pain with light palpation, positive fluid wave) - Routine Skin Exam Present: intact - Routine Neurological Exam Present: alert (Answer simple question no obvious confusion noted) <Criss Toussaint - Last Filed: 06/01/18 09:22> Vital signs: Vital Signs 05/31/18 16:00 05/31/18 20:00 06/01/18 00:00 Temperature 98.1 F 98.8 F 98.7 F Pulse Rate 72 94 H 93 H Respiratory Rate 20 18 Blood Pressure 113/68 102/63 91/62 L Pulse Oximetry 96 95 06/01/18 04:00 06/01/18 08:00 Temperature 98.8 F Pulse Rate 92 H Respiratory Rate 20 Blood Pressure 95/60 L Pulse Oximetry 95 95 Intake & Output 05/31/18 06/01/18 06/01/18 18:59 06:59 18:59 Intake Total 1110 / 1110 700 / 700 Output Total 930 / 930 1200 / 1200 Balance 180 / 180 -500 / -500 Weight 105.9 kg Intake: IV 1110 / 1110 NS + KCl 20 mEq Inj 1,000 ML @ 1000 / 1000 100 mls/hr IV.CONT .Q10H ANGI Rx #:[id number] Calcium Chloride Inj 1 GM In 110 / 110 D5W Inj 100 ML @ 110 mls/hr IV. SIG ONCE ONE Rx#:[id number] Oral 700 / 700 Output: Urine 930 / 930 1100 / 1100 Stool 100 / 100 Other: Date of Last Bowel Movement 05/31/18 05/31/18 <Marilynn Walters - Last Filed: 06/01/18 12:50> Results - Labs CBC & Chem 7: 05/31/18 04:25 06/01/18 05:34 Laboratory Results - last 24 hr 05/27/18 05/29/18 05/29/18 10:43 19:00 19:00 Sodium Potassium Chloride Carbon Dioxide Anion Gap BUN Creatinine Estimated GFR Random Glucose Calcium [id number]-8-Vytpnqehsvr DELFINA Screen Neg Anti-Smooth Muscle Ab Negative HCV RNA (PCR) IUs/ml Less than 15 HCV RNA PCR log IUs/ml Less than 1.18 05/29/18 06/01/18 19:00 05:34 Sodium 135 L Potassium 3.2 L Chloride 105 Carbon Dioxide 21.7 Anion Gap 8 BUN 4 L Creatinine 0.46 L Estimated GFR Greater than 89 Random Glucose 96 Calcium 7.5 L [id number]-0-Jtxyennnbld 206 H DELFINA Screen Anti-Smooth Muscle Ab HCV RNA (PCR) IUs/ml HCV RNA PCR log IUs/ml <Criss Toussaint - Last Filed: 06/01/18 09:22> - Labs CBC & Chem 7: 05/31/18 04:25 06/01/18 05:34 Laboratory Results - last 24 hr 05/29/18 05/29/18 05/29/18 19:00 19:00 19:00 PT INR Sodium Potassium Chloride Carbon Dioxide Anion Gap BUN Creatinine Estimated GFR Random Glucose Calcium Nzvjt-5-Tmgxoflmbjc 206 H DELFINA Screen Neg Anti-Smooth Muscle Ab Negative 06/01/18 06/01/18 05:34 10:00 PT 20.8 H INR 2.1 Sodium 135 L Potassium 3.2 L Chloride 105 Carbon Dioxide 21.7 Anion Gap 8 BUN 4 L Creatinine 0.46 L Estimated GFR Greater than 89 Random Glucose 96 Calcium 7.5 L Orqkw-6-Jbfimdcnbof DELFINA Screen Anti-Smooth Muscle Ab <Marilynn Walters - Last Filed: 06/01/18 12:50> Assessment and Plan - Plan Alcoholic liver cirrhosis Anemia 06/01/2018 patient is currently resting on his right side no acute shortness of breath able to answer simple questions and has no obvious altered mental status for now. Patient states paracentesis initially on admission, but again noted large amount of ascites which may need draining and possible FFP given. Current hemoglobin noted from 05/31/2018 8.7 no obvious bleeding noted. Patient states he is tolerating clear liquids without nausea or vomiting. Will check PT /INR in the a.m. Plan Diet liquids and any soft foods as tolerated, low-sodium Monitor labs with special attention to hemoglobin, INR Recheck INR in a.m. and Sunday a.m. Consider paracentesis early next week Supportive care Patient was seen per myself and Dr. Walters, note was written on his behalf <Criss Toussaint - Last Filed: 06/01/18 09:22> - Plan patient was seen and examined, agree with above note, he is drinking lots of fluid, i told him he need to be fluid restriction, paracentesis on sunday guarded prognosis <Marilynn Walters - Last Filed: 06/01/18 12:50>
[2018-06-01 10:42] LABS: INR 2.1 Ratio; Prothrombin Time 20.8 sec (9.8-11.6)
[2018-06-01] MEDS: Pantoprazole Inj 40 MG Vial IV.PUSH SCH (14:28)
[2018-06-01] MEDS: rifAXIMin 550 MG Tablet PO SCH ×2 (14:30→21:13)
--- NOTE | 2018-06-01 16:41 | P.PNIM ---
Subjective Interval history: Patient is lucid today, no confusion overnight. His abdomen has become more tight from ascites. He understands paracentesis is not something typically done over the weekend and that we can likely arrange this for Sunday. He would like to try being free from lactulose in order to solidify his stools. Physical Exam Vital signs: Vital Signs 05/31/18 20:00 06/01/18 00:00 06/01/18 04:00 Temperature 98.8 F 98.7 F 98.8 F Pulse Rate 94 H 93 H 92 H Respiratory Rate 20 20 Blood Pressure 102/63 91/62 L 95/60 L Pulse Oximetry 96 95 95 06/01/18 08:00 Temperature Pulse Rate Respiratory Rate Blood Pressure Pulse Oximetry 95 Intake & Output 05/31/18 06/01/18 06/01/18 18:59 06:59 18:59 Intake Total 1110 / 1110 700 / 700 Output Total 930 / 930 1200 / 1200 Balance 180 / 180 -500 / -500 Weight 105.9 kg Intake: IV 1110 / 1110 NS + KCl 20 mEq Inj 1,000 ML @ 1000 / 1000 100 mls/hr IV.CONT .Q10H ANGI Rx #:[id number] Calcium Chloride Inj 1 GM In 110 / 110 D5W Inj 100 ML @ 110 mls/hr IV. SIG ONCE ONE Rx#:[id number] Oral 700 / 700 Output: Urine 930 / 930 1100 / 1100 Stool 100 / 100 Other: Date of Last Bowel Movement 05/31/18 05/31/18 Narrative: GENERAL: AAOx3, mentally clear today SKIN: Warm and dry. No rashes, jaundice from waist up HEAD: Atruamtic, normocephalic. EYES: Scleral icterus present. No injection or drainage. ENT: Moist mucous membranes, patent nares, no erythema of oropharynx. NECK: Supple, trachea midline. No JVD or lymphadenopathy. Normal thyroid. CARDIOVASCULAR: Regular rate and rhythm. No murmurs, gallops, or rubs. RESPIRATORY: Breath sounds clear equal bilaterally. No crackles or wheezes. No accessory muscle use. GASTROINTESTINAL: Abdomen round, full, non-tender, normal active bowel sounds, increasing tightness MUSCULOSKELETAL: No cyanosis, or edema. NEURO: No asterixis, CN II-XII grossly intact, no focal deficits, no slurring of speech Results - Labs CBC & Chem 7: 05/31/18 04:25 06/01/18 05:34 Laboratory Results - last 24 hr 05/29/18 06/01/18 06/01/18 19:00 05:34 10:00 PT 20.8 H INR 2.1 Sodium 135 L Potassium 3.2 L Chloride 105 Carbon Dioxide 21.7 Anion Gap 8 BUN 4 L Creatinine 0.46 L Estimated GFR Greater than 89 Random Glucose 96 Calcium 7.5 L Umyxe-4-Yynwyaywmtj 206 H Assessment and Plan - Assessment (1) EtOH dependence Code(s): F10.20 - Alcohol dependence, uncomplicated Status: Acute Plan: [facility] protocol Patient education (2) Liver failure Code(s): K72.90 - Hepatic failure, unspecified without coma Status: Acute Plan: Rule out alternative causes of an alcohol which is the most likely etiology Follow-up iron levels and viral hepatitis studies CT abdomen pelvis does show significant ascites Lasix and diurese patient Patient may benefit from Aldactone and lactulose We will add a beta-maria l (3) GI bleed Code(s): K92.2 - Gastrointestinal hemorrhage, unspecified Status: Acute Plan: Patient on Protonix Follow-up hemoglobin remained stable GI consult for possible endoscopy Avoid NSAIDs (4) Metabolic encephalopathy Code(s): G93.41 - Metabolic encephalopathy Status: Acute Plan: Follow-up ammonia level Likely due to liver disease Continue medical management with [facility] protocol (5) Anemia Code(s): D64.9 - Anemia, unspecified Status: Acute Plan: Workup consistent with GI blood losses Type and screen completed (6) Hepatitis C antibody positive in blood Code(s): R76.8 - Other specified abnormal immunological findings in serum Status: Acute Plan: Follow-up RNA PCR - Plan Metabolic encephalopathy Ammonia level remains normal Continue rifaximin, holding lactulose Continue CIWA protocol as needed Ascites s/p paracentesis, 2400 mL removed 05/27/2018 Slight increase in firmness of abdomen Recommend fluid restriction Chronic liver failure Baseline INR is 1.6 naturally Patient not tolerating Lasix due to low systolic blood pressure (84 this morning ), holding beta-maria l Consider Aldactone GI bleed with anemia EGD showed esophageal varices, 2 bands placed by GI, no complications Hemoglobin appears stable in the 8.3-8.4 range Continue to follow hemoglobin trend with CBC Appreciate gastroenterology consult DVT prophylaxis SCD hose, chemoprophylaxis contraindicated due to natural INR level of 1.6
[2018-06-01 17:51] LABS: Ceruloplasmin 32 mg/dL (18-36)
[2018-06-01] MEDS: Nadolol 20 MG Tablet PO SCH (18:20)
[2018-06-02] MEDS: rifAXIMin 550 MG Tablet PO SCH ×2 (08:27→21:39)
[2018-06-02] MEDS: Pantoprazole Inj 40 MG Vial IV.PUSH SCH (08:28)
--- NOTE | 2018-06-02 08:58 | P.PNIM ---
Subjective Interval history: Patient is resting comfortably, sitting up and eating breakfast without distress. He does note increasing edema in his ankles and belly. Physical Exam Vital signs: Vital Signs 06/01/18 12:00 06/01/18 17:40 06/01/18 19:00 Temperature 98.8 F 98.8 F Pulse Rate 98 H 88 Respiratory Rate 19 24 Blood Pressure 91/59 L Pulse Oximetry 96 06/01/18 20:00 06/01/18 20:24 06/02/18 00:00 Temperature 98.9 F 99.8 F H Pulse Rate 90 99 H Respiratory Rate 36 H 22 Blood Pressure 94/52 L 99/52 L Pulse Oximetry 96 95 95 06/02/18 04:00 Temperature 99.8 F H Pulse Rate 80 Respiratory Rate 15 Blood Pressure 94/56 L Pulse Oximetry 96 Intake & Output 06/01/18 06/02/18 06/02/18 18:59 06:59 18:59 Intake Total 400 / 400 Output Total 400 / 400 950 / 950 Balance 0 / 0 -950 / -950 Weight 107 kg Intake: Oral 400 / 400 Output: Urine 400 / 400 950 / 950 Other: Post Void Residual 950 Date of Last Bowel Movement 06/01/18 06/01/18 # Bowel Movements 3 Narrative: GENERAL: AAOx3, mentally clear SKIN: Warm and dry. No rashes, jaundice from waist up HEAD: Atruamtic, normocephalic. EYES: Scleral icterus present. No injection or drainage. ENT: Moist mucous membranes, patent nares, no erythema of oropharynx. NECK: Supple, trachea midline. No JVD or lymphadenopathy. Normal thyroid. CARDIOVASCULAR: Regular rate and rhythm. No murmurs, gallops, or rubs. RESPIRATORY: Breath sounds clear equal bilaterally. No crackles or wheezes. No accessory muscle use. GASTROINTESTINAL: Abdomen round, full, non-tender, normal active bowel sounds, increasing tightness MUSCULOSKELETAL: No cyanosis, 1+ edema in ankles NEURO: No asterixis, CN II-XII grossly intact, no focal deficits, no slurring of speech Results - Labs CBC & Chem 7: 05/31/18 04:25 06/01/18 05:34 Laboratory Results - last 24 hr 05/29/18 06/01/18 19:00 10:00 PT 20.8 H INR 2.1 Ceruloplasmin 32 Assessment and Plan - Assessment (1) EtOH dependence Code(s): F10.20 - Alcohol dependence, uncomplicated Status: Acute Plan: CIWA protocol Patient education (2) Liver failure Code(s): K72.90 - Hepatic failure, unspecified without coma Status: Acute Plan: Rule out alternative causes of an alcohol which is the most likely etiology Follow-up iron levels and viral hepatitis studies CT abdomen pelvis does show significant ascites Lasix and diurese patient Patient may benefit from Aldactone and lactulose We will add a beta-maria l (3) GI bleed Code(s): K92.2 - Gastrointestinal hemorrhage, unspecified Status: Acute Plan: Patient on Protonix Follow-up hemoglobin remained stable GI consult for possible endoscopy Avoid NSAIDs (4) Metabolic encephalopathy Code(s): G93.41 - Metabolic encephalopathy Status: Acute Plan: Follow-up ammonia level Likely due to liver disease Continue medical management with [facility] protocol (5) Anemia Code(s): D64.9 - Anemia, unspecified Status: Acute Plan: Workup consistent with GI blood losses Type and screen completed (6) Hepatitis C antibody positive in blood Code(s): R76.8 - Other specified abnormal immunological findings in serum Status: Acute Plan: Follow-up RNA PCR - Plan Metabolic encephalopathy Ammonia level remains normal Continue rifaximin, lactulose held due to diarrhea Continue CIWA protocol as needed Ascites s/p paracentesis, 2400 mL removed 05/27/2018 Abdomen remains firm but nontender Recommend fluid restriction, continue Lasix Nadolol held due to hypotension Requesting paracentesis tomorrow following updated INR with a.m. labs Chronic liver failure Baseline INR is 1.6 naturally Continuing Lasix, holding nadolol due to hypotension Consider Aldactone GI bleed with anemia EGD showed esophageal varices, 2 bands placed by GI, no complications Hemoglobin appears stable in the 8's Continue to follow hemoglobin trend with CBC Appreciate gastroenterology consult DVT prophylaxis SCD hose, chemoprophylaxis contraindicated due to natural INR level of 1.6
[2018-06-02 09:44] LABS: INR 2.2 Ratio; Prothrombin Time 21.9 sec (9.8-11.6)
[2018-06-03 05:16] LABS: Hematocrit 25.7 % (39.0-51.0); Hemoglobin 8.6 gm/dL (13.0-17.0); Mean Corpuscular HGB Conc 33.6 % (32.0-36.0); Mean Corpuscular Volume 109.9 fL (80.0-100.0); Mean Platelet Volume 8.9 fL (7.0-11.0); Platelet Count 265 th/mm3 (150-450); Red Blood Count 2.34 mil/mm3 (4.50-5.90); Red Cell Distribution Width 18.1 % (11.6-17.2)
[2018-06-03 05:23] LABS: Chloride 102 meq/L (98-107); Sodium 134 meq/L (136-145)
[2018-06-03 05:26] LABS: INR 2.2 Ratio; Prothrombin Time 22.1 sec (9.8-11.6)
[2018-06-03 05:30] LABS: Anion Gap 8 meq/L (5-15); Blood Urea Nitrogen 6 mg/dL (7-18); Calcium 6.9 mg/dL (8.5-10.1); Carbon Dioxide 23.8 meq/L (21.0-32.0); Glomerular Filtration Rate Greater Than 89 mL/min (>89); Glucose,Random 93 mg/dL (74-106)
[2018-06-03 05:43] LABS: Total Protein 6.3 g/dL (6.4-8.2)
[2018-06-03] MEDS: Potassium Chlor 20 mEq Premix 20 MEQ/100 ML PIGGYBACK IV.SIG PRN ×4 (06:01→14:10)
[2018-06-03 06:02] LABS: Magnesium 1.3 mg/dL (1.5-2.5)
[2018-06-03] MEDS ORDERED: Calcium Gluconate Inj 1 GM in Sodium Chlor 0.9% Inj 100 ML IV.SIG ONE (06:30)
[2018-06-03] MEDS: rifAXIMin 550 MG Tablet PO SCH ×2 (08:55→21:06)
[2018-06-03] MEDS: Pantoprazole Inj 40 MG Vial IV.PUSH SCH (08:56)
--- NOTE | 2018-06-03 11:54 | P.PN ---
Subjective Interval history: 43-year-old rather unfortunate male who is seen today for follow-up on liver failure, GI bleed. Patient laying in bed comfortable. Has significant abdominal distention. Patient was supposed to undergo paracentesis this morning , however due to his coagulopathy, patient was unable to have procedure performed. Patient states that he started develop some abdominal discomfort from the increased size and girth of his abdomen. Blood pressure remains on the low side. Patient remains afebrile. Physical Exam Vital signs: Vital Signs 06/02/18 12:00 06/02/18 13:00 06/02/18 14:00 Temperature Pulse Rate 76 92 H 84 Respiratory Rate 17 29 H 28 H Blood Pressure Pulse Oximetry 06/02/18 14:58 06/02/18 15:00 06/02/18 16:00 Temperature 98.1 F Pulse Rate 84 86 82 Respiratory Rate 26 H 31 H 22 Blood Pressure 109/66 Pulse Oximetry 06/02/18 17:00 06/02/18 18:00 06/02/18 19:00 Temperature 98.1 F Pulse Rate 88 86 Respiratory Rate 22 24 Blood Pressure 99/55 L Pulse Oximetry 96 06/02/18 19:28 06/02/18 20:00 06/03/18 00:00 Temperature 100.1 F H 99.4 F Pulse Rate 86 84 Respiratory Rate 22 21 Blood Pressure 92/52 L 88/56 L Pulse Oximetry 94 L 96 95 06/03/18 04:00 06/03/18 07:00 06/03/18 08:00 Temperature 99.6 F 98.7 F Pulse Rate 86 80 Respiratory Rate 24 Blood Pressure 95/58 L 98/63 L Pulse Oximetry 94 L 97 Intake & Output 06/02/18 06/03/18 06/03/18 18:59 06:59 18:59 Intake Total 310 / 310 Output Total 900 / 900 Balance -900 / -900 310 / 310 Weight 108.4 kg Intake: IV 310 / 310 Calcium Gluconate Inj 1 GM In 110 / 110 NS Inj 100 ML @ 110 mls/hr IV. SIG ONCE ONE Rx#:[id number] KCl 20 mEq Premix Inj 20 meq In 200 / 200 100 ml @ 50 mls/hr IV.SIG Q2H PRN Rx#:[id number] Output: Urine 900 / 900 Other: Post Void Residual 400 Date of Last Bowel Movement 06/01/18 06/02/18 06/03/18 Narrative: GENERAL: Well-developed, well-nourished, in no acute distress. alert and orientated. Patient obviously looks much older than he really is HEENT: Head is normocephalic without any lesions or masses noted. Facial features are symmetric. Eyes: Extraocular muscles are intact. Sclera are icteric. NECK: Supple without any masses. Trachea midline no deviation. No JVD, no bruits are appreciated CARDIAC: Regular rhythm, regular rate. S1/S2 are heard. No murmurs gallops or rubs. LUNGS: Clear to auscultation bilaterally. No wheeze, rhonchi or rales. No use of accessory muscles on inspiration or expiration. ABDOMEN: Still soft at this time, however abdomen is starting to get more intense. Nontender. Abdominal distention, hyperresonant to percussion.. Bowel sounds heard in all 4 quadrants. No organomegaly or masses. Negative rebound, negative guarding EXTREMITIES: 2+ pitting edema noted bilateral lower extremities, pulses are equal bilaterally. No cyanosis or clubbing NEUROLOGY: Mood and affect appear appropriate. Cranial nerves II through XII grossly intact. Moving all extremities, speech is clear Results - Labs CBC & Chem 7: 06/03/18 04:50 06/03/18 04:50 Laboratory Results - last 24 hr 05/29/18 06/03/18 06/03/18 19:00 04:50 04:50 WBC 12.0 H RBC 2.34 L Hgb 8.6 L Hct 25.7 L MCV 109.9 H MCH 37.0 H MCHC 33.6 RDW 18.1 H Plt Count 265 D MPV 8.9 PT 22.1 H INR 2.2 Sodium Potassium Chloride Carbon Dioxide Anion Gap BUN Creatinine Estimated GFR Random Glucose Calcium Prot Corrected Calcium Magnesium Ammonia Total Protein Mitochondria M2 IgG Ab Less than 20.0 06/03/18 06/03/18 04:50 04:50 WBC RBC Hgb Hct MCV MCH MCHC RDW Plt Count MPV PT INR Sodium 134 L Potassium 3.0 L Chloride 102 Carbon Dioxide 23.8 Anion Gap 8 BUN 6 L Creatinine 0.55 L Estimated GFR Greater than 89 Random Glucose 93 Calcium 6.9 L* Prot Corrected Calcium 7.3 L* Magnesium 1.3 L Ammonia 39 H Total Protein 6.3 L Mitochondria M2 IgG Ab Assessment and Plan - Assessment (1) EtOH dependence Code(s): F10.20 - Alcohol dependence, uncomplicated Status: Acute Plan: CIWA protocol Patient education (2) Liver failure Code(s): K72.90 - Hepatic failure, unspecified without coma Status: Acute Plan: Rule out alternative causes of an alcohol which is the most likely etiology Follow-up iron levels and viral hepatitis studies CT abdomen pelvis does show significant ascites Lasix and diurese patient Patient may benefit from Aldactone and lactulose We will add a beta-maria l (3) GI bleed Code(s): K92.2 - Gastrointestinal hemorrhage, unspecified Status: Acute Plan: Patient on Protonix Follow-up hemoglobin remained stable GI consult for possible endoscopy Avoid NSAIDs (4) Metabolic encephalopathy Code(s): G93.41 - Metabolic encephalopathy Status: Acute Plan: Follow-up ammonia level Likely due to liver disease Continue medical management with CIWA protocol (5) Anemia Code(s): D64.9 - Anemia, unspecified Status: Acute Plan: Workup consistent with GI blood losses Type and screen completed (6) Hepatitis C antibody positive in blood Code(s): R76.8 - Other specified abnormal immunological findings in serum Status: Acute Plan: Follow-up RNA PCR - Plan Alcohol liver disease -Patient was continued to drink alcohol prior to this admission -Patient was on CIWA protocol for withdrawal, patient most recent CIWA score was 2 on 06/01/18, patient has required any Ativan since 05/30/18 -Patient indicates that he plans on remaining abstinent from alcohol at this time -Consult palliative care to discuss with the patient treatment options given the patient's significant liver disease -Complications of liver disease as described below and treatment of complications GI bleed -Secondary to alcoholic gastropathy, esophageal varices -Patient hemoglobin remains stable at this time -Status post endoscopy with portal gastropathy, esophageal varices grade 2 status post banding, duodenitis -Continue Protonix 40 mg twice daily Ascites, recurrent -Status post paracentesis of 2400 cc of clear green fluid -Anticipating paracentesis again, however deferred today due to coagulopathy -Patient is on Lasix, start spironolactone Hepatic encephalopathy -Patient was on lactulose 3 times daily with increased stools and improvement of pneumonia -Lactulose has been held the patient was started on rifaximin 550 mg twice daily -Ammonia level is mildly going up at this time. We will give lactulose daily along with the rifaximin Hepatic coagulopathy -Status post previous administration of vitamin K, will also give vitamin K again today to prepare for paracentesis to be performed -If vitamin K does not work may need to consider FFP -Continue monitor coagulation factors Electrolyte derangement with hypokalemia, hypomagnesemia, hypocalcemia, hyponatremia -Multifactorial with patient having diarrhea, GI loss, Lasix, third spacing -ICU electrolyte protocol -We will give total of 2 g of calcium IV today -Increase to KCl 30 mEq twice daily -Start magnesium oxide 400 mg twice daily -Continue monitor and replete as needed Thrombocytopenia -Improving on a daily basis -Continue monitor CBC Hepatitis C -Viral load less than 15 DVT prevention -Patient is coagulopathic with INR 2.2
[2018-06-03] MEDS: Spironolactone 50 MG Tablet PO SCH (12:15)
[2018-06-03] MEDS: Magnesium Oxide 400 MG Tablet PO SCH ×2 (12:18→21:07)
[2018-06-03] MEDS ORDERED: Calcium Chloride Inj 1 GM in Dextrose 5% in Water Inj 100 ML IV.SIG ONE ×2 (13:00)
[2018-06-03] MEDS ORDERED: Phytonadione 5 MG/SWFI 5 ML Oral Syringe PO ONE (13:00)
--- NOTE | 2018-06-03 15:05 | P.CONPAL ---
Consult Service: Palliative Care Reason for Consult: a. To assist with evaluation and management of symptoms including:pain b. To assist medical decision maker(s) with: better understanding of current medical conditions; weighing benefits/burdens of medical treatment options; making medical treatment decisions. Primary Care Provider: No Primary Care Physician History of Present Illness History of Present Illness: Patient is a 43-year-old who presented to the emergency room on 05/25/2018. Patient complaining of having black stools for 3-4 days with associated nausea and vomiting (coffee-ground emesis). ER physician noticed that patient has scleral icterus and a distended belly for 4 months. Patient has a history of alcoholic intake. In the ER: * Temperature is 99.6, pulse is 86, blood pressure is 95/58, pulse ox is 94% * WBC is 7.5, hemoglobin 8.3, hematocrit is 24.3, platelet is 82 * PT 16.3, INR is 1.6, PTT is 32.4 * Sodium is 136, potassium 3.6, chloride is 106, bicarb 23.6, BUN 3, creatinine 0.44 * Alpha-1 antitrypsin 206 * Albumin is 2.1 * CT shows heterogeneous liver likely hepatitis/cirrhosis Splenomegaly Moderate abdominal ascites with small right pleural effusion. * No pleural effusion. No pneumothorax on chest x-ray. * Patient admitted to hospitalist services, GI was consulted. Patient placed on Protonix and octreotide. 05/27-patient underwent paracentesis 2400 removed. EGD was also performed that revealed portal gastropathy with esophageal varices status post banding. Hospitalists noted that patient's confusion is improved and ammonia level is approaching normal. 05/28 to 05/30. mental status fluctuate between confusion to more clarity. 05/31 to 06/02. Increasing edema in his ankle and abdomen. Remains hypotensive 88-102/ 52-63. GI continues to follow along. 06/03- pt suppose to get paracentesis this morning, but unable to have procedure performed due to coagulopathy. pt also have worsening. Pain. Blood pressure remains low. Palliative Care was consulted to review goals of care. INR is 2.2 On my visit, pt has discomfort from abdomen. Pt still able to walk and go into the comode by himself. Pt's mom by bedside. I spoke with pt and mother, tell them my concern and worry about his liver. Review with them function of the liver, and as a result of his cirrohosis, he is the clinical manisfestation- ascites, varacies, coagulopathy, encephalopathy , hypotension etc.... I told them my worry that there is not much they can do, even if he stops drinking. I told them my worry that, given his hx of etoh abuse, he is not a candidate for liver transplantation. Mother at bedside appropriately tearful. Review code status, goals of care is the following: * I will get in touch with GI and get their perspective on prognosis, which they understandably want. * Pt wants to discuss with mom and brother on code status; they understand he is at risk for decompensation. For now it remains Full Code. * They would want FFP, paracentesis and if possible drain for recurrent ascites. * Hospice was brought up and they are considering it after they have some time to digest the information. * I will follow on goals of care tomorrow. Function/Cognitive Trajectory: worseing acites and fatigue past months Review of Systems Constitutional: Reports fatigue, Reports lack of energy Eyes: Denies blind spots, Denies blurry vision, Denies bulging eyes Ears, Nose, Mouth, and Throat: Denies abnormal hearing, Denies bleeding gums Cardiovascular: Denies chest pain, Denies chest pain at rest, Denies chest pain with activity Respiratory: Denies shortness of breath Gastrointestinal: Reports abdominal pain, Reports change in stools, Reports coffee ground vomit Genitourinary: Denies blood in urine, Denies decreased urination Neurologic: Reports confusion (at times), Denies abnormal hearing, Denies abnormal movements Psychiatric: Reports behavioral changes, Denies anxiety Hematologic/Lymphatic: Reports easy bleeding PMFSH - History History Provided By: Patient - Medical History Medical History: Medical History (Last Reviewed 05/28/18 @ 08:35 by Scott Bai) Alcohol abuse - Surgical History Surgical History: Surgical History (Last Reviewed 05/28/18 @ 08:35 by Scott Bai) No history of previous surgery - Family History Family History: Family History (Last Reviewed 06/03/18 @ 17:06 by Wilner Martinez MD) Other EtOH dependence - Tobacco History Second Hand Smoke Exposure: Yes Tobacco Use In Past 30 Days: Yes Smoking Status: Smoker, status unknown Tobacco Type: Cigarettes - Alcohol History How Often Do You Have a Drink Containing Alcohol: 4 or more times a week (Fifth of vodka a day) - Substance Use History Substance History: No History of Abuse - Travel History Recent Travel in the [place] Within the Last 8 Weeks: No Recent Travel Out of the Country Within the Last 8 Weeks: No - Immunization History Tetanus Immunization: Never Vaccinated Hx Influenza Vaccine This Season: No Medications and Allergies Active Medications: Active Medications Cyanocobalamin (Vitamin B12) 100 mcg PO DAILY [facility] Last Admin: 06/03/18 08:56 Dose: 100 mcg Furosemide (Lasix) 40 mg PO BID@0900,1800 [facility] Magnesium Sulfate Inj 4 gm/ (Sodium Chloride) 100 mls @ 50 mls/hr IV.SIG UNSCH PRN PRN Reason: For Magnesium 0.9 - 1.1 mg/dL Last Infusion: 05/28/18 10:57 Dose: Infused Magnesium Sulfate Inj 2 gm/ (Sodium Chloride) 100 mls @ 50 mls/hr IV.SIG UNSCH PRN PRN Reason: For Magnesium 1.2 - 1.6 mg/dL Potassium Chloride (Kcl 40 Meq Premix Inj) 40 meq in 100 mls @ 25 mls/hr IV.SIG Q2H PRN PRN Reason: For Potassium 2.8 - 3.2 mEq/L Potassium Chloride (Kcl 20 Meq Premix Inj) 20 meq in 100 mls @ 50 mls/hr IV.SIG Q2H PRN PRN Reason: For Potassium 3.3 - 3.5 mEq/L Last Infusion: 05/28/18 10:02 Dose: Infused Potassium Chloride (Kcl 40 Meq Premix Inj) 40 meq in 100 mls @ 25 mls/hr IV.SIG UNSCH PRN PRN Reason: For Potassium 3.3 - 3.5 mEq/L Potassium Chloride (Kcl 20 Meq Premix Inj) 20 meq in 100 mls @ 50 mls/hr IV.SIG Q2H PRN PRN Reason: For Potassium 2.8 - 3.2 mEq/L Last Admin: 06/03/18 14:10 Dose: 50 mls/hr Potassium Phosphate 30 mmol/ (Sodium Chloride) 260 mls @ 42 mls/hr IV.SIG UNSCH PRN PRN Reason: SEE LABEL COMMENTS Sodium Phosphate 30 mmol/ (Sodium Chloride) 260 mls @ 42 mls/hr IV.SIG UNSCH PRN PRN Reason: For Phosphorus < 2.5 mg/dL Lactulose (Lactulose Liq) 30 ml PO DAILY [facility] Last Admin: 06/03/18 14:36 Dose: Not Given Lorazepam (Ativan Inj) 2 mg IV.PUSH Q15M PRN PRN Reason: SEIZURES Last Admin: 05/28/18 20:21 Dose: 2 mg Magnesium Oxide (Mag-Ox) 800 mg PO UNSCH PRN PRN Reason: For Magnesium 1.2 - 1.6 mg/dL Last Admin: 06/03/18 11:39 Dose: 800 mg Magnesium Oxide (Mag-Ox) 400 mg PO BID@1100,1900 [facility] Last Admin: 06/03/18 12:18 Dose: Not Given Nadolol (Corgard) 20 mg PO DAILY [facility] Last Admin: 06/01/18 18:20 Dose: Not Given Ondansetron HCl (Zofran Inj) 4 mg IV.PUSH Q6H PRN PRN Reason: NAUSEA Last Admin: 05/28/18 01:09 Dose: 4 mg Pantoprazole Sodium (Protonix) 40 mg PO BID [facility] Potassium Bicarb/Potassium Chloride (K-Lyte Cl Eff) 50 meq PO UNSCH PRN PRN Reason: For Potassium 3.3 - 3.5 mEq/L Last Admin: 05/30/18 16:01 Dose: 50 meq Potassium Chloride (Klor-Con 10) 30 meq PO BID [facility] Potassium Phosphate (K-Phos Original) 2,000 mg PO Q4H PRN PRN Reason: Phosphorus Less Than 2.5 mg/dL Potassium Phosphate (K-Phos Original) 2,000 mg PO UNSCH PRN PRN Reason: SEE LABEL COMMENTS Rifaximin (Xifaxan) 550 mg PO Q12HR [facility] Last Admin: 06/03/18 08:55 Dose: 550 mg Sodium Chloride (Ns Flush) 2 ml IV.FLUSH PRN PRN PRN Reason: FLUSH AFTER USING IV ACCESS Last Admin: 05/25/18 20:07 Dose: 2 ml Sodium Chloride (Ns Flush) 2 ml IV.FLUSH BID [facility] Last Admin: 06/03/18 08:56 Dose: 2 ml Sodium Chloride (Ns Flush) 2 ml IV.FLUSH PRN PRN PRN Reason: FLUSH AFTER USING IV ACCESS Spironolactone (Aldactone) 50 mg PO DAILY [facility] Last Admin: 06/03/18 12:15 Dose: 50 mg Allergies Allergy/AdvReac Type Severity Reaction Status Date / Time No Known Allergies Allergy Verified 05/25/18 19:50 Home Medications Medication Instructions Recorded Confirmed Type ibuprofen 800 mg PO ONCE 05/25/18 05/25/18 History Advance Directives Living Will: No Healthcare Surrogate: No Physical Exam Vital Signs: Vital Signs - 24 hr 06/02/18 14:58 06/02/18 15:00 06/02/18 16:00 Temperature 98.1 F Pulse Rate 84 86 82 Respiratory Rate 26 H 31 H 22 Blood Pressure 109/66 Pulse Oximetry 06/02/18 17:00 06/02/18 18:00 06/02/18 19:00 Temperature 98.1 F Pulse Rate 88 86 Respiratory Rate 22 24 Blood Pressure 99/55 L Pulse Oximetry 96 06/02/18 19:28 06/02/18 20:00 06/03/18 00:00 Temperature 100.1 F H 99.4 F Pulse Rate 86 84 Respiratory Rate 22 21 Blood Pressure 92/52 L 88/56 L Pulse Oximetry 94 L 96 95 06/03/18 04:00 06/03/18 07:00 06/03/18 08:00 Temperature 99.6 F 98.7 F Pulse Rate 86 80 Respiratory Rate 24 Blood Pressure 95/58 L 98/63 L Pulse Oximetry 94 L 97 06/03/18 12:00 Temperature 98.0 F Pulse Rate 86 Respiratory Rate 21 Blood Pressure 103/64 Pulse Oximetry I&O: Intake & Output 06/01/18 06/02/18 06/03/18 06/04/18 06:59 06:59 06:59 06:59 Intake Total 1810 / 1810 400 / 400 410 / 410 Output Total 2130 / 2130 1350 / 1350 900 / 900 Balance -320 / -320 -950 / -950 -900 / -900 410 / 410 Weight 105.9 kg 107 kg 108.4 kg Physical Exam: CONSTITUTIONAL/GENERAL: This is an frail gentlemen, looks older than stated age TUBES/LINES/DRAINS: SKIN: Jaundice HEAD: Atraumatic. Normocephalic. EYES: Pupils equal and round and reactive. sclera icterus ENT: Hearing grossly normal. Nose without bleeding or purulent drainage. Throat without visible erythema, exudates, masses, or lesions. NECK: Trachea midline. Supple, nontender. No palpable thyroid enlargement or nodularity. CARDIOVASCULAR: Regular rate and rhythm without murmurs, gallops, or rubs. No JVD. Peripheral pulses symmetric. RESPIRATORY/CHEST: Symmetric, unlabored respirations. Clear to auscultation. Breath sounds equal bilaterally. No wheezes, rales, or rhonchi. GASTROINTESTINAL: Abdomen distended, fluid wave. distan bowel sounds GENITOURINARY: Without palpable bladder distension. Hernández catheter in place. MUSCULOSKELETAL: Extremities without clubbing, cyanosis, or edema. No joint tenderness or effusion noted. No calf tenderness. No mottling or clubbing. LYMPHATICS: No palpable cervical or supraclavicular adenopathy. NEUROLOGICAL: Awake and alert. Motor and sensory grossly within normal limits. Follows commands. Cognitively sharp. Moves all extremities. PSYCHIATRIC:No apparent hallucinations or other psychotic thought process. Diagnostic Tests Laboratory: Laboratory Results - last 72 hr 05/29/18 05/29/18 05/29/18 19:00 19:00 19:00 WBC RBC Hgb Hct MCV MCH MCHC RDW Plt Count MPV PT INR Sodium Potassium Chloride Carbon Dioxide Anion Gap BUN Creatinine Estimated GFR Random Glucose Calcium Prot Corrected Calcium Magnesium Ammonia Total Protein [id number]-[id number] 206 H Ceruloplasmin 32 DELFINA Screen Neg Mitochondria M2 IgG Ab Less than 20.0 06/01/18 06/01/18 06/02/18 05:34 10:00 09:23 WBC RBC Hgb Hct MCV MCH MCHC RDW Plt Count MPV PT 20.8 H 21.9 H INR 2.1 2.2 Sodium 135 L Potassium 3.2 L Chloride 105 Carbon Dioxide 21.7 Anion Gap 8 BUN 4 L Creatinine 0.46 L Estimated GFR Greater than 89 Random Glucose 96 Calcium 7.5 L Prot Corrected Calcium Magnesium Ammonia Total Protein Fbsnd-0-Vscsguraqgg Ceruloplasmin DELFINA Screen Mitochondria M2 IgG Ab 06/03/18 06/03/18 06/03/18 04:50 04:50 04:50 WBC 12.0 H RBC 2.34 L Hgb 8.6 L Hct 25.7 L MCV 109.9 H MCH 37.0 H MCHC 33.6 RDW 18.1 H Plt Count 265 D MPV 8.9 PT 22.1 H INR 2.2 Sodium 134 L Potassium 3.0 L Chloride 102 Carbon Dioxide 23.8 Anion Gap 8 BUN 6 L Creatinine 0.55 L Estimated GFR Greater than 89 Random Glucose 93 Calcium 6.9 L* Prot Corrected Calcium 7.3 L* Magnesium 1.3 L Ammonia Total Protein 6.3 L Cwvvn-4-Civpamvpcdo Ceruloplasmin DELFINA Screen Mitochondria M2 IgG Ab 06/03/18 04:50 WBC RBC Hgb Hct MCV MCH MCHC RDW Plt Count MPV PT INR Sodium Potassium Chloride Carbon Dioxide Anion Gap BUN Creatinine Estimated GFR Random Glucose Calcium Prot Corrected Calcium Magnesium Ammonia 39 H Total Protein Rqfxz-7-Wjsyurynhtq Ceruloplasmin DELFINA Screen Mitochondria M2 IgG Ab Result Diagrams: 06/04/18 05:55 06/04/18 05:55 Imaging: Chest X-Ray 05/25/18 19:41 CONCLUSION: Minimal bibasilar atelectasis. Abdomen/Pelvis CT 05/26/18 07:14 CONCLUSION: 1. Heterogeneous liver likely hepatitis/cirrhosis. 2. Splenomegaly. 3. Moderate abdominal ascites and there is disease left upper quadrant. 4. Small right pleural effusion and right basilar density. Paracentesis Ultrasound 05/27/18 00:00 CONCLUSION: 1. Uncomplicated ultrasound-guided paracentesis. Procedures: parcentesis Patient/Family Conference Present at Family Conference: Pt's Mother Family Conference Location: Bedside Issues Discussed: * Palliative care role, purpose, approach * Additional medical, psychosocial, and spiritual history * Patients general health, functional status, and cognitive changes in the months leading up to the current hospitalization * Patient/family understanding of the current medical problems * Patient/family understanding of prognosis * Patients goals of care as best understood from advance directives and/or conversations and/or values * Current medical treatment options and benefits/burdens of those options * Likely scenarios comparing ongoing aggressive care with a transition to comfort measures only * Questions answered to the best of my ability * Palliative care contact information provided Assessment and Plan - Disease Oriented Problem List (1) Liver failure (2) Ascites (3) Hypotension (4) EtOH dependence (5) GI bleed (6) Anemia (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 Single, No children. 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 Moved down here to [place] 3 months ago Spiritual:no spiritual Legal:no advance directives. Single, no children. Per [place] Statueets: health care proxy is pt's Mother Ethical issues impacting care:none Important Contacts: Lexii Bradshaw Mother [phone] Kirit bradshaw brother [phone] Prognosis: 43 relatively young patient, with cirrhosis, ascites, hypotension, varacies, and coagulopathy. Base on labaratory, and clinical manifestation, would qualify for hospice if goals are comfort oriented. Code Status: Full Code Plan: == Capacity: pt alert, follow commands. Display insight into patient's liver disease. Pt has capacity to make medical decision. Given liver comprimise, at risk for encephalopathy, and have fluctuating capacity. == Code: Full Code. == Goals of care: I told them my worry that there is not much they can do as his cirrhosis appears pretty advance (base on my review of clinical presentation and labs, he meets hospice criteria for Liver disease). I told them my worry that, given his hx of etoh abuse, he is not a candidate for liver transplantation. (it requires sobriety and can be year long process) Mother at bedside appropriately tearful. Review code status, goals of care is the following: * I will get in touch with GI and get their perspective on prognosis, which they understandably want. * Pt wants to discuss with mom and brother on code status; they understand he is at risk for decompensation. For now it remains Full Code. * They would want FFP, paracentesis and if possible cathether/drain for recurrent ascites. * Hospice was brought up and they are considering it after they have some time to digest the information. * I will follow on goals of care tomorrow. == Assessment: Pain: 2nd to ascities. plan- if possible paracetisis . === Palliative care will follow as clinical condition evolves and make recommendation on symptom management. Appreciation Thank you for the opportunity to participate in the care of Naman Bradshaw. Attestation Collaborating Comments: To help prompt me to consider important information that might be impacting today's encounter and assessment, information from prior notes written by myself or my colleagues may have been "brought forward" into today's note. My signature on this note, however, is an attestation that I personally performed the exam, history, and/or decision-making noted today, and, unless otherwise indicated, the interactions with patient, family, and staff as well as the review of records all occurred today. I also attest that the listed assessment and stated plan reflect my best clinical judgment today based on the combination of historical information, prior notes, and today's exam/ interactions. When time spent is documented, it refers only to time spent today by the signer, or if indicated, combined time spent today by collaborating physician/nurse practitioner. Attestation: To help prompt me to consider important information that might be impacting today's encounter and assessment, information from prior notes written by myself or my colleagues may have been "brought forward" into today's note. My signature on this note, however, is an attestation that I personally performed the exam, history, and/or decision-making noted today, and, unless otherwise indicated, the interactions with patient, family, and staff as well as the review of records all occurred today. I also attest that the listed assessment and stated plan reflect my best clinical judgment today based on the combination of historical information, prior notes, and today's exam/ interactions. When time spent is documented, it refers only to time spent today by the signer, or if indicated, combined time spent today by collaborating physician/nurse practitioner.
[2018-06-03] MEDS: Furosemide 40 MG Tablet PO SCH (18:37)
[2018-06-03 20:41] LABS: Potassium 3.6 meq/L (3.5-5.1)
[2018-06-03 20:43] LABS: Calcium 7.6 mg/dL (8.5-10.1); Magnesium 1.5 mg/dL (1.5-2.5)
[2018-06-04 06:40] LABS: Hematocrit 26.5 % (39.0-51.0); Hemoglobin 8.8 gm/dL (13.0-17.0); Mean Corpuscular HGB Conc 33.2 % (32.0-36.0); Mean Corpuscular Hemoglobin 36.6 pg (27.0-34.0); Mean Corpuscular Volume 110.4 fL (80.0-100.0); Mean Platelet Volume 8.6 fL (7.0-11.0); Platelet Count 308 th/mm3 (150-450); Red Blood Count 2.41 mil/mm3 (4.50-5.90); Red Cell Distribution Width 18.2 % (11.6-17.2); White Blood Count 13.7 th/mm3 (4.0-11.0)
[2018-06-04 06:51] LABS: Chloride 102 meq/L (98-107); Potassium 3.3 meq/L (3.5-5.1); Sodium 134 meq/L (136-145)
[2018-06-04 06:53] LABS: INR 2.1 Ratio; Prothrombin Time 20.8 sec (9.8-11.6)
[2018-06-04 07:04] LABS: Alanine Aminotransferase 41 U/L (12-78); Albumin 1.6 g/dL (3.4-5.0); Alkaline Phosphatase 159 U/L (45-117); Anion Gap 9 meq/L (5-15); Aspartate Aminotransferase 116 U/L (15-37); Blood Urea Nitrogen 7 mg/dL (7-18); Calcium 7.4 mg/dL (8.5-10.1); Carbon Dioxide 22.7 meq/L (21.0-32.0); Glomerular Filtration Rate Greater Than 89 mL/min (>89); Glucose,Random 90 mg/dL (74-106); Magnesium 1.5 mg/dL (1.5-2.5); Total Protein 6.4 g/dL (6.4-8.2)
[2018-06-04 07:18] LABS: Lymphocytes 13 % (9-44); Monocytes 5 % (0-8); Platelet Estimate Normal (Normal); Platelet Morphology Normal (Normal); Target Cells 1+
--- NOTE | 2018-06-04 07:52 | P.PN ---
Subjective Interval history: Follow up alcoholic liver disease, ascites, GI bleed. Patient seen and examined , mother at bedside. No acute events overnight. Patient is lying in bed comfortably no apparent distress. No pain. Tolerating p.o. intake without any nausea or vomiting. Positive bowel movement today. Denies any further bleeding. Afebrile overnight. Labs stable. Vital signs stable. Spoke to palliative care doctor, Dr. Martinez. Spoke to patient and mother at length, hospice addressed, patient is not ready to agree to hospice at this time, further family members are arriving on Sunday. Patient has been updated that prognosis is poor. At this time we will plan for therapeutic paracentesis, INR is elevated today, will give vitamin K and reassess INR in the morning. Physical Exam Vital signs: Vital Signs 06/03/18 08:00 06/03/18 12:00 06/03/18 17:00 Temperature 98.7 F 98.0 F 98.4 F Pulse Rate 80 86 90 Respiratory Rate 24 21 17 Blood Pressure 98/63 L 103/64 103/65 Pulse Oximetry 98 06/03/18 19:08 06/03/18 20:00 06/03/18 20:30 Temperature 98.3 F Pulse Rate 88 84 Respiratory Rate 12 19 Blood Pressure 118/71 Pulse Oximetry 94 L 06/04/18 07:00 Temperature Pulse Rate Respiratory Rate Blood Pressure Pulse Oximetry 94 L Intake & Output 06/03/18 06/04/18 06/04/18 18:59 06:59 18:59 Intake Total 1370 / 1370 210 / 210 Output Total 1525 / 1525 Balance -155 / -155 210 / 210 Intake: IV 410 / 410 210 / 210 Calcium Chloride Inj 1 GM In 110 / 110 D5W Inj 100 ML @ 110 mls/hr IV. SIG ONCE ONE Rx#:[id number] Calcium Gluconate Inj 1 GM In 110 / 110 NS Inj 100 ML @ 110 mls/hr IV. SIG ONCE ONE Rx#:[id number] KCl 20 mEq Premix Inj 20 meq In 300 / 300 100 / 100 100 ml @ 50 mls/hr IV.SIG Q2H PRN Rx#:[id number] Oral 960 / 960 Output: Urine 625 / 625 Stool 900 / 900 Other: Date of Last Bowel Movement 06/03/18 06/03/18 Narrative: GENERAL: Well-developed, well-nourished, in no acute distress. alert and orientated. Patient obviously looks much older than he really is HEENT: Head is normocephalic without any lesions or masses noted. Facial features are symmetric. Eyes: Extraocular muscles are intact. Sclera are icteric. NECK: Supple without any masses. Trachea midline no deviation. No JVD, no bruits are appreciated CARDIAC: Regular rhythm, regular rate. S1/S2 are heard. No murmurs gallops or rubs. LUNGS: Clear to auscultation bilaterally. No wheeze, rhonchi or rales. No use of accessory muscles on inspiration or expiration. ABDOMEN: Abdomen firm. Nontender. Abdominal distention, hyperresonant to percussion. Bowel sounds heard in all 4 quadrants. No organomegaly or masses. Negative rebound, negative guarding EXTREMITIES: 2+ pitting edema noted bilateral lower extremities, pulses are equal bilaterally. No cyanosis or clubbing NEUROLOGY: Mood and affect appear appropriate. Cranial nerves II through XII grossly intact. Moving all extremities, speech is clear Results - Labs CBC & Chem 7: 06/04/18 05:55 06/04/18 05:55 Laboratory Results - last 24 hr 06/03/18 06/03/18 06/04/18 04:50 20:25 05:55 CBC w Diff WBC RBC Hgb Hct MCV MCH MCHC RDW Plt Count MPV WBC Differential Seg Neuts % (Manual) Band Neuts % (Manual) Lymphocytes % (Manual) Monocytes % (Manual) Abs Neuts (Manual) Differential Comment Platelet Estimate Platelet Morphology Target Cells PT 20.8 H INR 2.1 Sodium Potassium 3.6 Chloride Carbon Dioxide Anion Gap BUN Creatinine Estimated GFR Random Glucose Calcium 7.6 L Prot Corrected Calcium 7.7 L Magnesium 1.5 Total Bilirubin AST ALT Alkaline Phosphatase Ammonia 39 H Total Protein 7.0 D Albumin 06/04/18 06/04/18 06/04/18 05:55 05:55 05:55 CBC w Diff Slide review pending WBC 13.7 H RBC 2.41 L Hgb 8.8 L Hct 26.5 L MCV 110.4 H MCH 36.6 H MCHC 33.2 RDW 18.2 H Plt Count 308 MPV 8.6 WBC Differential Manual diff final Seg Neuts % (Manual) 80 H Band Neuts % (Manual) 2 Lymphocytes % (Manual) 13 Monocytes % (Manual) 5 Abs Neuts (Manual) 11.2 H Differential Comment . Platelet Estimate Normal Platelet Morphology Normal Target Cells 1+ H PT INR Sodium 134 L Potassium 3.3 L Chloride 102 Carbon Dioxide 22.7 Anion Gap 9 BUN 7 Creatinine 0.57 L Estimated GFR Greater than 89 Random Glucose 90 Calcium 7.4 L* Prot Corrected Calcium 7.8 L Magnesium 1.5 Total Bilirubin 14.3 H AST 116 H ALT 41 Alkaline Phosphatase 159 H Ammonia 19 Total Protein 6.4 D Albumin 1.6 L Assessment and Plan - Assessment (1) EtOH dependence Code(s): F10.20 - Alcohol dependence, uncomplicated Status: Acute (2) Liver failure Code(s): K72.90 - Hepatic failure, unspecified without coma Status: Acute (3) GI bleed Code(s): K92.2 - Gastrointestinal hemorrhage, unspecified Status: Acute (4) Metabolic encephalopathy Code(s): G93.41 - Metabolic encephalopathy Status: Acute (5) Anemia Code(s): D64.9 - Anemia, unspecified Status: Acute (6) Hepatitis C antibody positive in blood Code(s): R76.8 - Other specified abnormal immunological findings in serum Status: Acute - Plan Alcohol liver disease -Patient was continued to drink alcohol prior to this admission -Patient was on CIWA protocol for withdrawal, patient most recent CIWA score was 2 on 06/01/18, patient has required any Ativan since 05/30/18. -Patient indicates that he plans on remaining abstinent from alcohol at this time -Consult palliative care to discuss with the patient treatment options given the patient's significant liver disease -Complications of liver disease as described below and treatment of complications GI bleed -Secondary to alcoholic gastropathy, esophageal varices -Patient hemoglobin remains stable at this time. -Status post endoscopy with portal gastropathy, esophageal varices grade 2 status post banding, duodenitis -Continue Protonix 40 mg twice daily Ascites, recurrent -CT abdomen pelvis does show significant ascites -Status post paracentesis of 2400 cc of clear green fluid -Anticipating paracentesis again, however deferred today due to coagulopathy -Patient is on Lasix, start spironolactone, lactulose and beta-maria l. Hepatic encephalopathy -Patient was on lactulose 3 times daily with increased stools and improvement of pneumonia. -Started on rifaximin 550 mg twice daily. -Ammonia level is mildly going up at this time. Will give lactulose daily along with the rifaximin. Hepatic coagulopathy -Status post previous administration of vitamin K, will also give vitamin K again today as well as a unit of FFP to prepare for paracentesis to be performed tomorrow. -Continue monitor coagulation factors Electrolyte derangement with hypokalemia, hypomagnesemia, hypocalcemia, hyponatremia -Multifactorial with patient having diarrhea, GI loss, Lasix, third spacing -ICU electrolyte protocol -Status post calcium. -Continue KCl 30 mEq twice daily. -Continue magnesium oxide 400 mg twice daily. -Continue monitor and replete as needed Thrombocytopenia -Improving on a daily basis -Continue monitor CBC Hepatitis C -Viral load less than 15 DVT prevention -Patient is coagulopathic with INR 2.1
[2018-06-04] MEDS: Spironolactone 50 MG Tablet PO SCH (08:28)
[2018-06-04] MEDS: rifAXIMin 550 MG Tablet PO SCH ×2 (08:29→21:03)
[2018-06-04] MEDS: Furosemide 40 MG Tablet PO SCH ×2 (08:33→18:20)
--- NOTE | 2018-06-04 09:09 | P.PNPAL ---
Reason for Visit Reason for visit: a. To assist with evaluation and management of symptoms including:pain b. To assist medical decision maker(s) with: better understanding of current medical conditions; weighing benefits/burdens of medical treatment options; making medical treatment decisions. Subjective Subjective/Interval History: WBC 13.7 Hgb 8.8 this morning. PT 20.8 and INR 2.1. Family/Friend Interactions: Met with family and pt at bedside. Complaints of abdominal pressure, not pain. No dyspnea. Conversation with mother and pt, review goals of care. I told them I did touch base with GI team this morning. GI said they have not seen pt for several days, but per last visit GI feels it will be difficult/challenging for patient to regain liver function. They confirms he likely will have recurrent ascites and hospitalization. Their comment on transplantation is also related. They are aware GI will be by to see patient this week, and will be available for them to ask questions Patient and mother stated they still have not decided weather to transition to comfort measures /hospice(pt's clinical manifestation and lab function meets hospice criteria). Pt said he is awaiting for brother to arrive. They await for his brother to get here before deciding on code status. Advance Directives Living Will: Never completed Health Care Surrogate: Never completed Durable Power of Logistics Management Specialist: Never completed Objective Vital Signs: Vital Signs 06/03/18 12:00 06/03/18 17:00 06/03/18 19:08 Temperature 98.0 F 98.4 F Pulse Rate 86 90 88 Respiratory Rate 21 17 12 Blood Pressure 103/64 103/65 118/71 Pulse Oximetry 98 06/03/18 20:00 06/03/18 20:30 06/04/18 07:00 Temperature 98.3 F Pulse Rate 84 Respiratory Rate 19 Blood Pressure Pulse Oximetry 94 L 94 L Intake & Output 06/03/18 06/04/18 06/04/18 18:59 06:59 18:59 Intake Total 1370 / 1370 210 / 210 Output Total 1525 / 1525 Balance -155 / -155 210 / 210 Intake: IV 410 / 410 210 / 210 Calcium Chloride Inj 1 GM In 110 / 110 D5W Inj 100 ML @ 110 mls/hr IV. SIG ONCE ONE Rx#:[id number] Calcium Gluconate Inj 1 GM In 110 / 110 NS Inj 100 ML @ 110 mls/hr IV. SIG ONCE ONE Rx#:[id number] KCl 20 mEq Premix Inj 20 meq In 300 / 300 100 / 100 100 ml @ 50 mls/hr IV.SIG Q2H PRN Rx#:[id number] Oral 960 / 960 Output: Urine 625 / 625 Stool 900 / 900 Other: Date of Last Bowel Movement 06/03/18 06/03/18 Physical Exam: CONSTITUTIONAL/GENERAL: This is an frail gentlemen, looks older than stated age TUBES/LINES/DRAINS: SKIN: Jaundice HEAD: Atraumatic. Normocephalic. EYES: Pupils equal and round and reactive. sclera icterus ENT: Hearing grossly normal. Nose without bleeding or purulent drainage. Throat without visible erythema, exudates, masses, or lesions. NECK: Trachea midline. Supple, nontender. No palpable thyroid enlargement or nodularity. CARDIOVASCULAR: Regular rate and rhythm without murmurs, gallops, or rubs. No JVD. Peripheral pulses symmetric. RESPIRATORY/CHEST: Symmetric, unlabored respirations. Clear to auscultation. Breath sounds equal bilaterally. No wheezes, rales, or rhonchi. GASTROINTESTINAL: Abdomen distended, fluid wave. distan bowel sounds GENITOURINARY: Without palpable bladder distension. Hernández catheter in place. MUSCULOSKELETAL: Extremities without clubbing, cyanosis, or edema. No joint tenderness or effusion noted. No calf tenderness. No mottling or clubbing. LYMPHATICS: No palpable cervical or supraclavicular adenopathy. NEUROLOGICAL: Awake and alert. Motor and sensory grossly within normal limits. Follows commands. Cognitively sharp. Moves all extremities. PSYCHIATRIC:No apparent hallucinations or other psychotic thought process. Diagnostic Tests Laboratory: Laboratory Results - last 72 hr 05/29/18 05/29/18 06/01/18 19:00 19:00 10:00 CBC w Diff WBC RBC Hgb Hct MCV MCH MCHC RDW Plt Count MPV WBC Differential Seg Neuts % (Manual) Band Neuts % (Manual) Lymphocytes % (Manual) Monocytes % (Manual) Abs Neuts (Manual) Differential Comment Platelet Estimate Platelet Morphology Target Cells PT 20.8 H INR 2.1 Sodium Potassium Chloride Carbon Dioxide Anion Gap BUN Creatinine Estimated GFR Random Glucose Calcium Prot Corrected Calcium Magnesium Total Bilirubin AST ALT Alkaline Phosphatase Ammonia Total Protein Albumin Ceruloplasmin 32 Mitochondria M2 IgG Ab Less than 20.0 06/02/18 06/03/18 06/03/18 09:23 04:50 04:50 CBC w Diff WBC 12.0 H RBC 2.34 L Hgb 8.6 L Hct 25.7 L MCV 109.9 H MCH 37.0 H MCHC 33.6 RDW 18.1 H Plt Count 265 D MPV 8.9 WBC Differential Seg Neuts % (Manual) Band Neuts % (Manual) Lymphocytes % (Manual) Monocytes % (Manual) Abs Neuts (Manual) Differential Comment Platelet Estimate Platelet Morphology Target Cells PT 21.9 H 22.1 H INR 2.2 2.2 Sodium Potassium Chloride Carbon Dioxide Anion Gap BUN Creatinine Estimated GFR Random Glucose Calcium Prot Corrected Calcium Magnesium Total Bilirubin AST ALT Alkaline Phosphatase Ammonia Total Protein Albumin Ceruloplasmin Mitochondria M2 IgG Ab 06/03/18 06/03/18 06/03/18 04:50 04:50 20:25 CBC w Diff WBC RBC Hgb Hct MCV MCH MCHC RDW Plt Count MPV WBC Differential Seg Neuts % (Manual) Band Neuts % (Manual) Lymphocytes % (Manual) Monocytes % (Manual) Abs Neuts (Manual) Differential Comment Platelet Estimate Platelet Morphology Target Cells PT INR Sodium 134 L Potassium 3.0 L 3.6 Chloride 102 Carbon Dioxide 23.8 Anion Gap 8 BUN 6 L Creatinine 0.55 L Estimated GFR Greater than 89 Random Glucose 93 Calcium 6.9 L* 7.6 L Prot Corrected Calcium 7.3 L* 7.7 L Magnesium 1.3 L 1.5 Total Bilirubin AST ALT Alkaline Phosphatase Ammonia 39 H Total Protein 6.3 L 7.0 D Albumin Ceruloplasmin Mitochondria M2 IgG Ab 06/04/18 06/04/18 06/04/18 05:55 05:55 05:55 CBC w Diff Slide review pending WBC 13.7 H RBC 2.41 L Hgb 8.8 L Hct 26.5 L MCV 110.4 H MCH 36.6 H MCHC 33.2 RDW 18.2 H Plt Count 308 MPV 8.6 WBC Differential Manual diff final Seg Neuts % (Manual) 80 H Band Neuts % (Manual) 2 Lymphocytes % (Manual) 13 Monocytes % (Manual) 5 Abs Neuts (Manual) 11.2 H Differential Comment . Platelet Estimate Normal Platelet Morphology Normal Target Cells 1+ H PT 20.8 H INR 2.1 Sodium 134 L Potassium 3.3 L Chloride 102 Carbon Dioxide 22.7 Anion Gap 9 BUN 7 Creatinine 0.57 L Estimated GFR Greater than 89 Random Glucose 90 Calcium 7.4 L* Prot Corrected Calcium 7.8 L Magnesium 1.5 Total Bilirubin 14.3 H AST 116 H ALT 41 Alkaline Phosphatase 159 H Ammonia Total Protein 6.4 D Albumin 1.6 L Ceruloplasmin Mitochondria M2 IgG Ab 06/04/18 05:55 CBC w Diff WBC RBC Hgb Hct MCV MCH MCHC RDW Plt Count MPV WBC Differential Seg Neuts % (Manual) Band Neuts % (Manual) Lymphocytes % (Manual) Monocytes % (Manual) Abs Neuts (Manual) Differential Comment Platelet Estimate Platelet Morphology Target Cells PT INR Sodium Potassium Chloride Carbon Dioxide Anion Gap BUN Creatinine Estimated GFR Random Glucose Calcium Prot Corrected Calcium Magnesium Total Bilirubin AST ALT Alkaline Phosphatase Ammonia 19 Total Protein Albumin Ceruloplasmin Mitochondria M2 IgG Ab Result Diagrams: 06/04/18 05:55 06/04/18 05:55 Imaging: ITS Impressions Chest X-Ray 05/25/18 19:41 CONCLUSION: Minimal bibasilar atelectasis. Abdomen/Pelvis CT 05/26/18 07:14 CONCLUSION: 1. Heterogeneous liver likely hepatitis/cirrhosis. 2. Splenomegaly. 3. Moderate abdominal ascites and there is disease left upper quadrant. 4. Small right pleural effusion and right basilar density. Paracentesis Ultrasound 05/27/18 00:00 CONCLUSION: 1. Uncomplicated ultrasound-guided paracentesis. Procedures: parcentesis Assessment and Plan - Disease Oriented Problem List (1) Liver failure (2) Ascites (3) Hypotension (4) EtOH dependence (5) GI bleed (6) Anemia (7) Hepatitis C antibody positive in blood - Symptom Scale (1) Pain, abdominal 0-10 Scale: 5 (more like pressure like) Pertinent Non-Medical Issues: Psychosocial:Originally from [facility]. Single, No children. 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 Moved down here to [place] 3 months ago Spiritual:no spiritual Legal:no advance directives. Single, no children. Per [place] [employer]: health care proxy is pt's Mother Ethical issues impacting care:none Important Contacts: Lexii Mccullough Mother [phone] Kirit mccullough brother [phone] Prognosis: 43 relatively young patient, with cirrhosis, ascites, hypotension, varacies, and coagulopathy. Base on labaratory, and clinical manifestation, would qualify for hospice if goals are comfort oriented. Code Status: Full Code Plan: == Capacity: pt alert, follow commands. Display insight into patient's liver disease. Pt has capacity to make medical decision. Given liver comprimise, at risk for encephalopathy, and have fluctuating capacity. == Code: Full Code. == Goals of care: Family meeting (06/03)I told them my worry that there is not much they can do, even if he stops drinking. I told them my worry that, given his hx of etoh abuse, he is not a candidate for liver transplantation, and likely its a year long process. Mother at bedside appropriately tearful. Review code status, goals of care is the following: ==Family meeting 06/04 Conversation with mother and pt, review goals of care. I told them I did touch base with GI team this morning. GI said they have not seen pt for several days, but per last visit GI feels it will be difficult/challenging for patient to regain liver function. They confirms he likely will have recurrent ascites and hospitalization. Their comment on transplantation is also related. Family are aware GI will be by to see patient this week, and will be available for them to ask questions Patient and mother stated they still have not decided weather to transition to comfort measures /hospice(pt's clinical manifestation and lab function meets hospice criteria). Pt said he is awaiting for brother to arrival this or . They await for his brother to get here before deciding on code status. Goals continue to be aggressive. == Assessment: Pain: 2nd to ascities. Pressure like/ Will need paracentesis. plan- if possible paracetisis . == palliative care will follow as clinical condition evolves, and monitor/make recommendation for symptom management. Attestation Attestation: To help prompt me to consider important information that might be impacting today's encounter and assessment, information from prior notes written by myself or my colleagues may have been "brought forward" into today's note. My signature on this note, however, is an attestation that I personally performed the exam, history, and/or decision-making noted today, and, unless otherwise indicated, the interactions with patient, family, and staff as well as the review of records all occurred today. I also attest that the listed assessment and stated plan reflect my best clinical judgment today based on the combination of historical information, prior notes, and today's exam/ interactions. When time spent is documented, it refers only to time spent today by the signer, or if indicated, combined time spent today by collaborating physician/nurse practitioner.
[2018-06-04] MEDS: Magnesium Oxide 400 MG Tablet PO SCH ×2 (10:51→19:12)
[2018-06-04] MEDS ORDERED: Sodium Chlor 0.9% Inj 250 ML IV.SIG SCH (11:00)
[2018-06-05 08:43] LABS: INR 1.9 Ratio; Prothrombin Time 19.5 sec (9.8-11.6)
--- NOTE | 2018-06-05 08:48 | P.PN ---
Subjective Interval history: Follow up alcoholic liver disease, ascites, GI bleed. Patient seen and examined , lying in bed comfortably in no apparent distress. Patient denies any acute events or reports of any complaints overnight. Awaiting INR level today. Patient is in need of paracentesis. Abdomen is still firm. Denies any pain, chest pain or shortness of breath. Physical Exam Vital signs: Vital Signs 06/04/18 12:00 06/04/18 13:40 06/04/18 14:03 Temperature 98.1 F 97.4 F L 98.5 F Pulse Rate 89 94 H 86 Respiratory Rate 20 18 18 Blood Pressure 116/60 119/67 104/55 L Pulse Oximetry 95 96 95 06/04/18 17:30 06/04/18 20:00 06/05/18 00:00 Temperature 98.5 F 97.5 F L 97.9 F Pulse Rate 84 90 84 Respiratory Rate 20 22 20 Blood Pressure 103/56 L 116/66 117/70 Pulse Oximetry 96 94 L 95 Intake & Output 06/04/18 06/05/18 06/05/18 18:59 06:59 18:59 Intake Total 1052 / 1052 500 / 500 100 / 100 Output Total 600 / 600 Balance 452 / 452 500 / 500 100 / 100 Weight 103.9 kg Intake: IV 100 / 100 NS Inj 250 ML @ 15 mls/hr IV. 100 / 100 SIG ONCE ANGI Rx#:[id number] Oral 720 / 720 500 / 500 Other 3 / 3 Plasma Thawed 5 Day Cp2d Unit 3 [id number] Intake (Blood Product) Amt 329 / 329 Plasma Thawed 5 Day Cp2d Unit 329 / 329 [id number] Output: Urine 600 / 600 Other: Other Intake Source Plasma Thawed 5 Day Cp2d Unit Saline Solution [id number] # Voids 3 Date of Last Bowel Movement 06/04/18 # Bowel Movements 3 Narrative: GENERAL: Well-developed, well-nourished, in no acute distress. alert and orientated. Patient obviously looks much older than he really is HEENT: Head is normocephalic without any lesions or masses noted. Facial features are symmetric. Eyes: Extraocular muscles are intact. Sclera are icteric. NECK: Supple without any masses. Trachea midline no deviation. No JVD, no bruits are appreciated CARDIAC: Regular rhythm, regular rate. S1/S2 are heard. No murmurs gallops or rubs. LUNGS: Clear to auscultation bilaterally. No wheeze, rhonchi or rales. No use of accessory muscles on inspiration or expiration. ABDOMEN: Abdomen firm. Nontender. Abdominal distention, hyperresonant to percussion. Bowel sounds heard in all 4 quadrants. No organomegaly or masses. Negative rebound, negative guarding EXTREMITIES: 2+ pitting edema noted bilateral lower extremities, pulses are equal bilaterally. No cyanosis or clubbing NEUROLOGY: Mood and affect appear appropriate. Cranial nerves II through XII grossly intact. Moving all extremities, speech is clear Results - Labs CBC & Chem 7: 06/04/18 05:55 06/04/18 05:55 Laboratory Results - last 24 hr 06/04/18 10:18 Blood Bank Comment Assessment and Plan - Assessment (1) EtOH dependence Code(s): F10.20 - Alcohol dependence, uncomplicated Status: Acute (2) Liver failure Code(s): K72.90 - Hepatic failure, unspecified without coma Status: Acute (3) GI bleed Code(s): K92.2 - Gastrointestinal hemorrhage, unspecified Status: Acute (4) Metabolic encephalopathy Code(s): G93.41 - Metabolic encephalopathy Status: Acute (5) Anemia Code(s): D64.9 - Anemia, unspecified Status: Acute (6) Hepatitis C antibody positive in blood Code(s): R76.8 - Other specified abnormal immunological findings in serum Status: Acute - Plan Alcohol liver disease -Patient was continued to drink alcohol prior to this admission -Patient was on CIWA protocol for withdrawal, patient most recent CIWA score was 2 on 06/01/18, patient has not required any Ativan since 05/30/18. No signs of withdrawal. -Patient indicates that he plans on remaining abstinent from alcohol at this time -Consult palliative care to discuss with the patient treatment options given the patient's significant liver disease -Complications of liver disease as described below and treatment of complications GI bleed -Secondary to alcoholic gastropathy, esophageal varices -Patient hemoglobin remains stable at this time. -Status post endoscopy with portal gastropathy, esophageal varices grade 2 status post banding, duodenitis -Continue Protonix 40 mg twice daily Ascites, recurrent -CT abdomen pelvis does show significant ascites -Status post paracentesis of 2400 cc of clear green fluid -Anticipating paracentesis again, however deferred yesterday due to coagulopathy. -Patient is on Lasix, start spironolactone, lactulose and beta-maria l. Hepatic encephalopathy -Patient was on lactulose 3 times daily with increased stools and improvement of pneumonia. -Started on rifaximin 550 mg twice daily. -Ammonia level noted 19. Will continue lactulose daily along with the rifaximin. Hepatic coagulopathy -Status post previous administration of vitamin K yesterday as well as a unit of FFP. Paracentesis today depending on INR results. -Continue monitor coagulation factors Electrolyte derangement with hypokalemia, hypomagnesemia, hypocalcemia, hyponatremia -Multifactorial with patient having diarrhea, GI loss, Lasix, third spacing -ICU electrolyte protocol -Status post calcium. -Continue KCl 30 mEq twice daily. -Continue magnesium oxide 400 mg twice daily. -Continue monitor and replete as needed -Recheck labs in am. Thrombocytopenia -Improving slightly -Continue monitor CBC Hepatitis C -Viral load less than 15 DVT prevention -Patient is coagulopathic with INR 2.1
[2018-06-05] MEDS: rifAXIMin 550 MG Tablet PO SCH ×2 (09:14→20:45)
[2018-06-05] MEDS: Spironolactone 50 MG Tablet PO SCH (09:14)
[2018-06-05] MEDS: Furosemide 40 MG Tablet PO SCH ×2 (09:17→17:40)
[2018-06-05] MEDS: Magnesium Oxide 400 MG Tablet PO SCH ×2 (11:47→18:11)
[2018-06-05] MEDS ORDERED: Albumin Human 25% Inj 150 ML IV.SIG ONE (14:00)
--- NOTE | 2018-06-05 15:29 | US ---
EXAM DATE: 06/05/2018 1:58 PM EDT AGE/SEX: 43 years / Male INDICATIONS: Ascites. CLINICAL DATA: This is the patient's subsequent encounter. Patient reports that signs and symptoms h ave been present for 1 day and indicates a pain score of 3/10. MEDICAL/SURGICAL HISTORY: . Alcohol abuse. None. COMPARISON: No prior exams available for comparison. FLUID: Total volume of 5600 cc of clear, yellow fluid was removed. Fluid was discarded. . . TECHNIQUE: Ultrasound guidance for abdominal paracentesis. Paracentesis. The risks, benefits, and alternatives to ultrasound guided paracentesis were explained to the patient in detail including the risk of bleeding and infection. Written and verbal informed consent was obt ained. With the patient on the ultrasound table, ultrasound imaging was used to select the most appropriate approach for paracentesis. Overlying skin was prepped and draped in the usual sterile fashion and wi th a local anesthetic, a dermatotomy was made with an 11 blade scalpel. A 6 [place] [id number] ca theter was introduced into the peritoneal cavity and fluid was collected. The patient tolerated the procedure well and left the ultrasound suite in stable condition. FINDINGS: After obtaining consent, an ultrasound-guided paracentesis was performed yielding 5600 cc of yellow a scites. The patient tolerated the procedure well without complications. CONCLUSION: 1. Successful ultrasound-guided paracentesis as described above. Electronically signed by: Dayton Adame MD 06/05/2018 3:28 PM EDT
[2018-06-06 06:29] LABS: Hematocrit 25.3 % (39.0-51.0); Hemoglobin 8.8 gm/dL (13.0-17.0); Mean Corpuscular HGB Conc 34.7 % (32.0-36.0); Mean Corpuscular Hemoglobin 37.2 pg (27.0-34.0); Mean Corpuscular Volume 107.2 fL (80.0-100.0); Mean Platelet Volume 8.6 fL (7.0-11.0); Platelet Count 293 th/mm3 (150-450); Red Blood Count 2.36 mil/mm3 (4.50-5.90); Red Cell Distribution Width 18.6 % (11.6-17.2); White Blood Count 12.2 th/mm3 (4.0-11.0)
[2018-06-06 06:43] LABS: Chloride 102 meq/L (98-107); Potassium 3.2 meq/L (3.5-5.1); Sodium 136 meq/L (136-145)
[2018-06-06 06:46] LABS: INR 1.9 Ratio; Prothrombin Time 19.6 sec (9.8-11.6)
[2018-06-06 07:16] LABS: Anion Gap 10 meq/L (5-15); Blood Urea Nitrogen 7 mg/dL (7-18); Calcium 7.3 mg/dL (8.5-10.1); Carbon Dioxide 24.3 meq/L (21.0-32.0); Glomerular Filtration Rate Greater Than 89 mL/min (>89); Glucose,Random 91 mg/dL (74-106); Magnesium 1.8 mg/dL (1.5-2.5)
[2018-06-06 07:39] LABS: Total Protein 6.3 g/dL (6.4-8.2)
[2018-06-06 07:46] LABS: Eosinophils 1 % (0-4); Lymphocytes 9 % (9-44); Monocytes 9 % (0-8); Target Cells 2+
[2018-06-06 07:47] LABS: Acanthocytes 1+; Platelet Estimate Normal (Normal); Platelet Morphology Normal (Normal)
[2018-06-06] MEDS: Spironolactone 50 MG Tablet PO SCH (08:42)
[2018-06-06] MEDS: rifAXIMin 550 MG Tablet PO SCH ×2 (08:43→19:50)
[2018-06-06] MEDS: Furosemide 40 MG Tablet PO SCH ×2 (08:45→17:28)
--- NOTE | 2018-06-06 09:36 | P.PN ---
Subjective Interval history: Follow up alcoholic liver disease, ascites, GI bleed. Patient seen and examined status post paracentesis yesterday, 5.6 L removed. Patient improved, states he feels better. Denies any pain. Vital signs stable. Afebrile. Still awaiting patient and family decision regarding hospice. Physical Exam Vital signs: Vital Signs 06/05/18 12:00 06/05/18 16:00 06/05/18 20:00 Temperature 96.5 F L 98.2 F 98.1 F Pulse Rate 89 82 87 Respiratory Rate 17 17 20 Blood Pressure 116/68 108/74 93/50 L Pulse Oximetry 96 97 96 06/06/18 00:00 06/06/18 08:51 Temperature 98.1 F 96.7 F L Pulse Rate 86 89 Respiratory Rate 20 18 Blood Pressure 107/60 106/51 L Pulse Oximetry 95 96 Intake & Output 06/05/18 06/06/18 06/06/18 18:59 06:59 18:59 Intake Total 730 / 730 120 / 120 Balance 730 / 730 120 / 120 Weight 95.7 kg Intake: IV 250 / 250 Flexbumin 25% Inj 150 ML @ 60 150 / 150 mls/hr IV.SIG ONCE ONE Rx#: [id number] NS Inj 250 ML @ 15 mls/hr IV. 100 / 100 SIG ONCE ANGI Rx#:[id number] Oral 480 / 480 120 / 120 Other: # Voids 5 1 Date of Last Bowel Movement 06/04/18 06/05/18 06/06/18 # Bowel Movements 1 Narrative: GENERAL: Well-developed, well-nourished, in no acute distress. alert and orientated. Patient obviously looks much older than he really is HEENT: Head is normocephalic without any lesions or masses noted. Facial features are symmetric. Eyes: Extraocular muscles are intact. Sclera are icteric. NECK: Supple without any masses. Trachea midline no deviation. No JVD, no bruits are appreciated CARDIAC: Regular rhythm, regular rate. S1/S2 are heard. No murmurs gallops or rubs. LUNGS: Clear to auscultation bilaterally. No wheeze, rhonchi or rales. No use of accessory muscles on inspiration or expiration. ABDOMEN: Abdomen firm. Nontender. Abdominal distention, hyperresonant to percussion. Bowel sounds heard in all 4 quadrants. No organomegaly or masses. Negative rebound, negative guarding EXTREMITIES: 2+ pitting edema noted bilateral lower extremities, pulses are equal bilaterally. No cyanosis or clubbing NEUROLOGY: Mood and affect appear appropriate. Cranial nerves II through XII grossly intact. Moving all extremities, speech is clear Results - Labs CBC & Chem 7: 06/06/18 05:45 06/06/18 05:45 Laboratory Results - last 24 hr 06/06/18 06/06/18 06/06/18 05:45 05:45 05:45 CBC w Diff Slide review pending WBC 12.2 H RBC 2.36 L Hgb 8.8 L Hct 25.3 L MCV 107.2 H MCH 37.2 H MCHC 34.7 RDW 18.6 H Plt Count 293 MPV 8.6 WBC Differential Manual diff final Seg Neuts % (Manual) 80 H Band Neuts % (Manual) 1 Lymphocytes % (Manual) 9 Monocytes % (Manual) 9 H Eosinophils % (Manual) 1 Abs Neuts (Manual) 9.9 H Differential Comment . Platelet Estimate Normal Platelet Morphology Normal Target Cells 2+ H Acanthocytes (Spur) 1+ H PT 19.6 H INR 1.9 Sodium 136 Potassium 3.2 L Chloride 102 Carbon Dioxide 24.3 Anion Gap 10 BUN 7 Creatinine 0.58 L Estimated GFR Greater than 89 Random Glucose 91 Calcium 7.3 L* Prot Corrected Calcium 7.7 L Magnesium 1.8 Total Protein 6.3 L - Imaging Impressions Paracentesis Ultrasound 06/05/18 00:00 CONCLUSION: 1. Successful ultrasound-guided paracentesis as described above. Assessment and Plan - Assessment (1) EtOH dependence Code(s): F10.20 - Alcohol dependence, uncomplicated Status: Acute Plan: [facility] protocol Patient education (2) Liver failure Code(s): K72.90 - Hepatic failure, unspecified without coma Status: Acute Plan: Rule out alternative causes of an alcohol which is the most likely etiology Follow-up iron levels and viral hepatitis studies CT abdomen pelvis does show significant ascites Lasix and diurese patient Patient may benefit from Aldactone and lactulose We will add a beta-maria l (3) GI bleed Code(s): K92.2 - Gastrointestinal hemorrhage, unspecified Status: Acute Plan: Patient on Protonix Follow-up hemoglobin remained stable GI consult for possible endoscopy Avoid NSAIDs (4) Metabolic encephalopathy Code(s): G93.41 - Metabolic encephalopathy Status: Acute Plan: Follow-up ammonia level Likely due to liver disease Continue medical management with CIWA protocol (5) Anemia Code(s): D64.9 - Anemia, unspecified Status: Acute Plan: Workup consistent with GI blood losses Type and screen completed (6) Hepatitis C antibody positive in blood Code(s): R76.8 - Other specified abnormal immunological findings in serum Status: Acute Plan: Follow-up RNA PCR - Plan Alcoholic liver disease -Patient continued to drink alcohol prior to this admission. -Patient was on CIWA protocol for withdrawal, patient most recent CIWA score was 2 on 06/01/18, patient has not required any Ativan since 05/30/18. No signs of withdrawal. -Patient indicates that he plans on remaining abstinent from alcohol at this time. -Consulted palliative care to discuss with the patient treatment options given the patient's significant liver disease. Appreciate input and recommendations. -Awaiting patient and family to make decision regarding Hospice. Family is coming into town tomorrow. -Complications of liver disease as described below and treatment of complications. GI bleed. Resolved. -Secondary to alcoholic gastropathy, esophageal varices -Patient hemoglobin remains stable at this time. -Status post endoscopy with portal gastropathy, esophageal varices grade 2 status post banding, duodenitis -Continue Protonix 40 mg twice daily. Ascites, recurrent -CT abdomen pelvis does show significant ascites -Status post paracentesis of 2400 cc of clear green fluid. -Status post paracentesis 06/05/18, 5.6L removed. Continue to monitor. -Patient is on Lasix, start spironolactone, lactulose and beta-maria l. Hepatic encephalopathy. Resolved. -Patient was on lactulose 3 times daily with increased stools and improvement of pneumonia. -Continue on rifaximin 550 mg twice daily. -Ammonia level noted 19. Will continue lactulose daily along with the rifaximin. Hepatic coagulopathy -Status post previous administration of vitamin K as well as a unit of FFP. Paracentesis today performed on 06/05/18. -Continue monitor coagulation factors Electrolyte derangement with hypokalemia, hypomagnesemia, hypocalcemia, hyponatremia -Multifactorial with patient having diarrhea, GI loss, Lasix, third spacing -ICU electrolyte protocol -Status post calcium. -Continue KCl 30 mEq twice daily. -Continue magnesium oxide 400 mg twice daily. -Continue monitor and replete as needed Thrombocytopenia -Improving slightly -Continue monitor CBC Hepatitis C -Viral load less than 15 DVT prevention -Patient is coagulopathic. Discharge Planning: Awaiting for patient and family to make decisions regarding Hospice. Palliative care following. Family arrives into town tomorrow.
[2018-06-06] MEDS: Magnesium Oxide 400 MG Tablet PO SCH ×2 (11:15→18:01)
[2018-06-07 08:56] VITALS: RESP 18
[2018-06-07] MEDS: rifAXIMin 550 MG Tablet PO SCH (09:28)
[2018-06-07] MEDS: Furosemide 40 MG Tablet PO SCH (09:29)
[2018-06-07] MEDS: Spironolactone 50 MG Tablet PO SCH (09:29)
--- NOTE | 2018-06-07 10:13 | P.PN ---
Subjective Interval history: Follow-up end-stage liver disease. Patient seen and examined, lying in bed comfortably no apparent distress. Plan for hospice to meet with mother, brother of patient and patient himself today. Arrangements are likely being made with hospice. Will await final decision. In the meantime will keep comfortable. Pain is well controlled. Abdomen round and soft. Vital signs stable. Afebrile. Physical Exam Vital signs: Vital Signs 06/06/18 12:54 06/06/18 17:29 06/06/18 20:00 Temperature 97.0 F L 98.2 F 98.6 F Pulse Rate 87 88 79 Respiratory Rate 16 16 17 Blood Pressure 115/59 L 117/65 105/62 Pulse Oximetry 97 95 95 06/07/18 00:00 06/07/18 08:00 Temperature 99.4 F 97.0 F L Pulse Rate 87 89 Respiratory Rate 16 18 Blood Pressure 113/56 L 117/62 Pulse Oximetry 94 L 95 Intake & Output 06/06/18 06/07/18 06/07/18 18:59 06:59 18:59 Intake Total 1200 / 1200 Balance 1200 / 1200 Weight 95.7 kg Intake: Oral 1200 / 1200 Other: # Voids 4 5 Date of Last Bowel Movement 06/06/18 06/06/18 # Bowel Movements 4 Narrative: GENERAL: Well-developed, well-nourished, in no acute distress. alert and orientated. HEENT: Head is normocephalic without any lesions or masses noted. Facial features are symmetric. Eyes: Extraocular muscles are intact. Sclera are icteric. NECK: Supple without any masses. Trachea midline no deviation. No JVD, no bruits are appreciated CARDIAC: Regular rhythm, regular rate. S1/S2 are heard. No murmurs gallops or rubs. LUNGS: Clear to auscultation bilaterally. No wheeze, rhonchi or rales. No use of accessory muscles on inspiration or expiration. ABDOMEN: Abdomen firm. Nontender. Abdominal distention, hyperresonant to percussion. Bowel sounds heard in all 4 quadrants. No organomegaly or masses. Negative rebound, negative guarding EXTREMITIES: 2+ pitting edema noted bilateral lower extremities, pulses are equal bilaterally. No cyanosis or clubbing NEUROLOGY: Mood and affect appear appropriate. Cranial nerves II through XII grossly intact. Moving all extremities, speech is clear Results - Labs CBC & Chem 7: 06/06/18 05:45 06/06/18 05:45 Assessment and Plan - Assessment (1) EtOH dependence Code(s): F10.20 - Alcohol dependence, uncomplicated Status: Acute Plan: [facility] protocol Patient education (2) Liver failure Code(s): K72.90 - Hepatic failure, unspecified without coma Status: Acute Plan: Rule out alternative causes of an alcohol which is the most likely etiology Follow-up iron levels and viral hepatitis studies CT abdomen pelvis does show significant ascites Lasix and diurese patient Patient may benefit from Aldactone and lactulose We will add a beta-maria l (3) GI bleed Code(s): K92.2 - Gastrointestinal hemorrhage, unspecified Status: Acute Plan: Patient on Protonix Follow-up hemoglobin remained stable GI consult for possible endoscopy Avoid NSAIDs (4) Metabolic encephalopathy Code(s): G93.41 - Metabolic encephalopathy Status: Acute Plan: Follow-up ammonia level Likely due to liver disease Continue medical management with [facility] protocol (5) Anemia Code(s): D64.9 - Anemia, unspecified Status: Acute Plan: Workup consistent with GI blood losses Type and screen completed (6) Hepatitis C antibody positive in blood Code(s): R76.8 - Other specified abnormal immunological findings in serum Status: Acute Plan: Follow-up RNA PCR - Plan Alcoholic liver disease -Patient continued to drink alcohol prior to this admission. -Patient was on [facility] protocol for withdrawal, patient most recent CIWA score was 2 on 06/01/18, patient has not required any Ativan since 05/30/18. No signs of withdrawal. -Patient indicates that he plans on remaining abstinent from alcohol at this time. -Consulted palliative care to discuss with the patient treatment options given the patient's significant liver disease. Appreciate input and recommendations. -Awaiting patient and family to make decision regarding Hospice. Family is coming into town tomorrow. -Complications of liver disease as described below and treatment of complications. GI bleed. Resolved. -Secondary to alcoholic gastropathy, esophageal varices -Patient hemoglobin remains stable at this time. -Status post endoscopy with portal gastropathy, esophageal varices grade 2 status post banding, duodenitis -Continue Protonix 40 mg twice daily. Ascites, recurrent. -CT abdomen pelvis does show significant ascites -Status post paracentesis of 2400 cc of clear green fluid. -Status post paracentesis 06/05/18, 5.6L removed. Continue to monitor. -Patient is on Lasix, start spironolactone, lactulose and beta-maria l. Hepatic encephalopathy. Resolved. -Patient was on lactulose 3 times daily with increased stools and improvement of pneumonia. -Continue on rifaximin 550 mg twice daily. -Ammonia level noted 19. Will continue lactulose daily along with the rifaximin. Hepatic coagulopathy -Status post previous administration of vitamin K as well as a unit of FFP. Paracentesis performed on 06/05/18. Status post 5-1/2 L. -Continue monitor coagulation factors Electrolyte derangement with hypokalemia, hypomagnesemia, hypocalcemia, hyponatremia -Multifactorial with patient having diarrhea, GI loss, Lasix, third spacing -ICU electrolyte protocol -Status post calcium. -Continue KCl 30 mEq twice daily. -Continue magnesium oxide 400 mg twice daily. -Continue monitor and replete as needed Thrombocytopenia -Improving slightly -Continue monitor CBC Hepatitis C -Viral load less than 15 DVT prevention -Patient is coagulopathic. Discharge Planning: Awaiting for patient and family to make decisions regarding Hospice. Palliative care following.
[2018-06-07] MEDS: Magnesium Oxide 400 MG Tablet PO SCH (12:30)
[2018-06-07 12:58] VITALS: BP 113/59; PULSE 87; TEMP 97.3; O2SAT 97
--- NOTE | 2018-06-07 14:54 | P.DS ---
Date of admission: 05/25/18 23:56 Primary care physician: No Primary Care Physician Brief History from admission: Is a 43-year-old gentleman with a history of alcohol dependency who presents with severe liver failure and evidence of GI bleeding patient says he has had abdominal pain and chest pressure for which she started taking ibuprofen. Patient complains of mild abdominal pain at this point. He has been picking at his bottom. He has rectal exam which showed some hemorrhoids with Hemoccult positive stool in the emergency room. Here the patient has been comfortable but picking at his bottom. Patient's been admitted to the hospital with a hemoglobin of 9.9 and a pulse rate in the 120s DS: Diagnosis - Discharge Diagnosis (1) EtOH dependence Status: Acute (2) Liver failure Status: Acute (3) GI bleed Status: Acute (4) Metabolic encephalopathy Status: Acute (5) Anemia Status: Acute (6) Hepatitis C antibody positive in blood Status: Acute DS: Medications - Discharge Medications Prescriptions: furosemide 40 mg PO BID@0900,1800 30 Days tab lactulose 30 ml PO DAILY 30 Days #900 ml nadolol 20 mg PO DAILY 30 Days #30 tab potassium chloride [Klor-Con 10] 30 meq PO BID 30 Days #180 tab rifaximin [Xifaxan] 550 mg PO Q12HR 30 Days tab spironolactone 50 mg PO DAILY 30 Days #30 tab DS: Summary Hospital Course: This is a 43-year-old patient presented with alcoholic liver disease. Continue to drink prior to admission. Was placed on CIWA protocol for withdrawal. Patient indicates that he plans on remaining abstinent from alcohol. Patient also had GI bleed secondary to alcoholic gastropathy and esophageal varices. Hemoglobin stable. Status post endoscopy with portal gastropathy, esophageal varices grade 2 status post banding, duodenitis. Was given Protonix. Ascites. CT abdomen pelvis does show significant ascites Status post paracentesis 2, 2400 cc of clear green fluid and second with 5-1/2 L. Patient is on Lasix, start spironolactone, lactulose and beta-maria l will continue for comfort. Also had hepatic encephalopathy that is resolved. Will continue lactulose. Ammonia normal. Patient also had hepatic coagulopathy, status post previous administration of vitamin K as well as a unit of FFP. Patient with electrolyte derangement with hypokalemia, hypomagnesemia, hypocalcemia, hyponatremia during hospitalization, this is multifactorial with patient having diarrhea, GI loss, Lasix, third spacing. Start on electrolyte protocol. Repleted as needed. Patient also with thrombocytopenia. And history of hep C. Patient was discharged home with hospice. Ultimately comfort measures have been taken, medications have been continued for comfort measures. - Time Spent with Patient Total time spent providing and/or coordinating discharge services: Greater than 30 minutes - Quality: VTE Deep Vein Thrombosis/Pulmonary Embolism Present on Admission: No Exam Vital signs: Vital Signs 06/06/18 17:29 06/06/18 20:00 06/07/18 00:00 Temperature 98.2 F 98.6 F 99.4 F Pulse Rate 88 79 87 Respiratory Rate 16 17 16 Blood Pressure 117/65 105/62 113/56 L Pulse Oximetry 95 95 94 L 06/07/18 08:00 06/07/18 12:00 Temperature 97.0 F L 97.3 F L Pulse Rate 89 87 Respiratory Rate 18 18 Blood Pressure 117/62 113/59 L Pulse Oximetry 95 97 Intake & Output 06/06/18 06/07/18 06/07/18 18:59 06:59 18:59 Intake Total 1200 / 1200 Balance 1200 / 1200 Weight 95.7 kg Intake: Oral 1200 / 1200 Other: # Voids 4 5 Date of Last Bowel Movement 06/06/18 06/06/18 # Bowel Movements 4 Narrative: GENERAL: Well-developed, well-nourished patient in [facility]. SKIN: Warm and dry. No rash. Jaundiced. HEAD: Normocephalic. Atraumatic. EYES: Pupils equal and round. No scleral icterus. No injection or drainage. ENT: No nasal bleeding or discharge. Mucous membranes pink and moist. NECK: Supple. Trachea midline. CARDIOVASCULAR: Regular rate and rhythm. S1, S2 noted. No murmur appreciated. RESPIRATORY: No accessory muscle use. Clear to auscultation. Breath sounds equal bilaterally. GASTROINTESTINAL: Abdomen non-tender, distended, firm. Normoactive bowel sounds x4. Hyperresonance MUSCULOSKELETAL: No obvious deformities. Extremities without clubbing, cyanosis , or edema. NEUROLOGICAL: Awake and alert. No obvious cranial nerve deficits. Motor grossly within normal limits. 5/5 muscle strength in bilateral upper and lower extremities. Normal speech. PSYCHIATRIC: Appropriate mood and affect; insight and judgment normal. Results Procedures completed during hospitalization: Paracentesis x 2 - Impressions ITS Impressions Chest X-Ray 05/25/18 19:41 CONCLUSION: Minimal bibasilar atelectasis. Abdomen/Pelvis CT 05/26/18 07:14 CONCLUSION: 1. Heterogeneous liver likely hepatitis/cirrhosis. 2. Splenomegaly. 3. Moderate abdominal ascites and there is disease left upper quadrant. 4. Small right pleural effusion and right basilar density. Paracentesis Ultrasound 06/05/18 00:00 CONCLUSION: 1. Successful ultrasound-guided paracentesis as described above. Discharge Plan - Discharge Disposition Patient Disposition: 50 Hospice/Home - Discharge Condition Condition: Fair - Discharge Order Discharge Orders: Discharge Order (Routine); Ordered 06/07/18 Ordered By: Yue Andrade - Discharge Details Anticipated Discharge Date: 06/07/18 - Physicians Team Primary Care Provider: Primary Care Karina Lugo Attending Provider: Prosper Bush Other Providers: Mary Rocha MD ; Wilner Martinez MD
== END 2018-06-07 16:22 | disposition hospice, home (50) ==
LOC: PHED 19:14 → PHEDA 23:56 → PHICU 05-26 00:53 → PH3 06-03 21:55
PROVIDERS: ADMIT Internal Medicine; ATTEND Internal Medicine
PROC: PANENDO (2018-05-27 07:10)